=== PATIENT | female | born 1950 | race Caucasian/White ===

== ENCOUNTER 2016-11-11 15:28 | Emergency (ER) | payer MEDICARE, OTHER ==
--- NOTE | 2016-11-11 16:48 | EDM.PDOC ---
ED HPI GENERAL MEDICAL PROBLEM - General Chief Complaint: Gastrointestinal Problem Stated Complaint: CANCER, CONSTIPATED Time Seen by Provider: 11/11/16 16:26 Source of Information: Reports: Patient History Limitations: Reports: No Limitations - History of Present Illness INITIAL COMMENTS - FREE TEXT/NARRATIVE: History of present illness: [66-year-old female with brain cancer being treated by male presents concerned about constipation. She states she's not had a good bowel movement for 4-5 days. She is reluctant to use any [id number] medications for constipation history is afraid they might interfere with her chemotherapy meds etc. She's had no diarrhea and no nausea no vomiting denies any dysuria she's had no fevers or chills.] Review of systems: As per history of present illness and below otherwise all systems reviewed and negative. Past medical history: As per history of present illness and as reviewed below otherwise noncontributory. Surgical history: As per history of present illness and as reviewed below otherwise noncontributory. Social history: No reported history of drug or alcohol abuse. Family history: As per history of present illness and as reviewed below otherwise noncontributory. Physical exam: Gen.: Pleasant lady has alopecia wearing a scarf cap. HEENT: Atraumatic, normocephalic, Lungs: Clear to auscultation Heart: S1S2, regular Abdomen: Soft, nondistended, nontender. Genitourinary: Deferred. Rectal: On rectal examination her vault is empty. Extremities: Atraumatic, negative for cords or calf pain. Neurovascular unremarkable. Neuro: Awake, alert, oriented.Exam nonfocal. Diagnostics: [] Therapeutics: [] Impression: [Constipation by history] Plan: [I discussed home remedies and that the [id number] remedies for constipation should not be a problem for her in using them with her chemotherapy medications.] Definitive disposition and diagnosis as appropriate pending reevaluation and review of above. denies Pain Score (Numeric/FACES): 0 - Related Data Allergies Allergy/AdvReac Type Severity Reaction Status Date / Time clarithromycin [From Biaxin] Allergy Hives Verified 07/04/15 04:21 glycerin [From Tucks] Allergy Hives Verified 07/04/15 04:21 metronidazole Allergy Hives Verified 07/04/15 04:21 mineral oil [From Tucks] Allergy Hives Verified 07/04/15 04:21 moxifloxacin HCl Allergy Cannot Verified 07/04/15 04:21 [From Avelox] Remember pramoxine HCl [From Banners] Allergy Hives Verified 07/04/15 04:21 starch [From cks] Allergy Hives Verified 07/04/15 04:21 tetracycline [Tetracycline] Allergy Hives Verified 07/04/15 04:21 witch parris [From [facility]] Allergy Hives Verified 07/04/15 04:21 witch parris leaf [From Banners] Allergy Hives Verified 07/04/15 04:21 zinc oxide [From Banners] Allergy Hives Verified 07/04/15 04:21 Iodinated Contrast- Oral and AdvReac Stomach Verified 07/04/15 04:21 IV Dye Upset meperidine HCl [From Demerol] AdvReac Nausea and Verified 07/04/15 04:21 Vomiting Home Meds: Home Meds Omeprazole [Prilosec] 20 mg PO BEDTIME 09/26/13 [History] Denosumab [Xgeva] 120 mg INJECT Q90D 06/29/14 [History] Prochlorperazine Maleate [Compazine] 10 mg PO Q6HR PRN 06/29/14 [History] Acetaminophen [Tylenol Extra Strength] 1 - 2 tab PO Q6H PRN 07/04/15 [History] Memantine [Namenda] 10 mg PO BID 11/11/16 [History] Ondansetron [Zofran] 8 mg PO Q8H PRN 11/11/16 [History] Osimertinib Mesylate [Tagrisso] 1 tab PO DAILY 11/11/16 [History] Past Medical History HEENT History: Reports: Impaired Vision Gastrointestinal History: Reports: GERD [employer]IDENT History: Reports: , 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 Musculoskeletal History: Reports: Neck Pain, Chronic Hematologic History: Reports: Blood Transfusion(s) Immunologic History: Reports: Immunosuppression Oncologic (Cancer) History: Reports: Brain, Lung Other Oncologic History: Lung up trachea and spot on the spine - Past Surgical History Respiratory Surgical History: Reports: Lung Biopsies GI Surgical History: Reports: Other (See Below) Other GI Surgeries/Procedures: endosinche of stomache. Female Surgical History: Reports: Hysterectomy, Other (See Below) Other Female Surgeries/Procedures: bladder repair Social & Family History - Tobacco Use Smoking Status *Q: Former Smoker Years of Tobacco use: 24 Packs/Tins Daily: 0.5 Used Tobacco, but Quit: Yes Month Tobacco Last Used: September Second Hand Smoke Exposure: No - Caffeine Use Caffeine Use: Reports: Soda, Tea - Alcohol Use Days Per Week of Alcohol Use: 0 - Recreational Drug Use Recreational Drug Use: No ED ROS GENERAL - Review of Systems Review Of Systems: ROS reveals no pertinent complaints other than HPI. ED EXAM, GI/ABD - Physical Exam Exam: See Below Course - Vital Signs Last Recorded V/S: Last Vital Signs Temp 36.8 C 11/11/16 16:03 Pulse 70 11/11/16 16:03 Resp 16 11/11/16 16:03 BP 148/80 H 11/11/16 16:03 Pulse Ox 95 11/11/16 16:03 Departure - Departure Time of Disposition: 16:47 Disposition: Home, Self-Care 01 Condition: Good Clinical Impression: Constipation Qualifiers: Constipation type: unspecified constipation type Qualified Code(s): K59.00 - Constipation, unspecified - Discharge Information Forms: ED Department Discharge Additional Instructions: As we discussed you can use [id number] remedies for your constipation and not worried that they will interact with your medications that you're currently taking. Again remember our discussion regarding water and drinking water.
[2016-11-11 17:07] VITALS: BP 106/69
== END 2016-11-11 17:24 | disposition home or self-care (01) ==
LOC: JP.ED 15:28
DX: K59.00 Constipation, unspecified (principal); K21.9 Gastro-esophageal reflux disease without esophagitis; C71.9 Malignant neoplasm of brain, unspecified; Z85.118 Personal history of other malignant neoplasm of bronchus and lung; Z79.899 Other long term (current) drug therapy; Z87.891 Personal history of nicotine dependence; Z88.1 Allergy status to other antibiotic agents; Z88.8 Allergy status to other drugs, medicaments and biological substances; Z91.041 Radiographic dye allergy status
CPT/HCPCS: 99283

== ENCOUNTER 2016-12-08 12:15 | Inpatient (IN) | payer MEDICARE, OTHER ==
--- NOTE | 2016-12-08 14:31 | EDM.PDOC ---
ED HPI GENERAL MEDICAL PROBLEM - General Chief Complaint: General Stated Complaint: NAUSEA/VOMITING Time Seen by Provider: 12/08/16 12:26 Source of Information: Reports: Patient, Family () History Limitations: Reports: No Limitations - History of Present Illness INITIAL COMMENTS - FREE TEXT/NARRATIVE: Pt with stage 4 lung CA with mets to brain noted in 10/07. Was given RX for Prednisone 2 weeks ago but did not start it. Appetite progressively declining. With constipation ongoing. Last night took a laxative and struggled to have results. When she finally had results, noted gel like bloody stool. This morning with nausea and vomiting and more frequent gel like stools. Is quite weak. Also with tingling sensation in the brain. Denies headaches or seizures. Has noted increasing right arm weakness. Declines po nausea meds at time of eval. Onset: Gradual Onset Date: 12/08/16 Duration: Getting Worse Severity: Moderate Improves with: Reports: None Worsens with: Reports: Eating, Medication Context: Reports: Other Associated Symptoms: Reports: Loss of Appetite, Malaise, Nausea/Vomiting - Related Data Allergies Allergy/AdvReac Type Severity Reaction Status Date / Time clarithromycin [From Biaxin] Allergy Hives Verified 12/08/16 13:32 glycerin [From Tucks] Allergy Hives Verified 12/08/16 13:32 metronidazole Allergy Hives Verified 12/08/16 13:32 mineral oil [From Tucks] Allergy Hives Verified 12/08/16 13:32 moxifloxacin HCl Allergy Cannot Verified 12/08/16 13:32 [From Avelox] Remember pramoxine HCl [From Tucks] Allergy Hives Verified 12/08/16 13:32 starch [From Tucks] Allergy Hives Verified 12/08/16 13:32 tetracycline [Tetracycline] Allergy Hives Verified 12/08/16 13:32 witch parris [From Tucks] Allergy Hives Verified 12/08/16 13:32 witch parris leaf [From Tucks] Allergy Hives Verified 12/08/16 13:32 zinc oxide [From Tucks] Allergy Hives Verified 12/08/16 13:32 Iodinated Contrast- Oral and AdvReac Stomach Verified 12/08/16 13:32 IV Dye Upset meperidine HCl [From Demerol] AdvReac Nausea and Verified 12/08/16 13:32 Vomiting Home Meds: Home Meds Omeprazole [Prilosec] 20 mg PO BEDTIME 09/26/13 [History] Denosumab [Xgeva] 120 mg INJECT Q90D 06/29/14 [History] Prochlorperazine Maleate [Compazine] 10 mg PO Q6HR PRN 06/29/14 [History] Acetaminophen [Tylenol Extra Strength] 1 - 2 tab PO Q6H PRN 07/04/15 [History] Memantine [Namenda] 10 mg PO BID 11/11/16 [History] Ondansetron [Zofran] 8 mg PO Q8H PRN 11/11/16 [History] Osimertinib Mesylate [Tagrisso] 1 tab PO DAILY 11/11/16 [History] Past Medical History HEENT History: Reports: Impaired Vision Gastrointestinal History: Reports: GERD 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 Female Surgical History: Reports: Hysterectomy, Other (See Below) Other Female Surgeries/Procedures: bladder repair Other Musculoskeletal Surgeries/Procedures:: METS TO SPINE Social & Family History - Tobacco Use Smoking Status *Q: Unknown Ever Smoked Years of Tobacco use: 24 Packs/Tins Daily: 0.5 Used Tobacco, but Quit: Yes Month Tobacco Last Used: September Second Hand Smoke Exposure: No - Caffeine Use Caffeine Use: Reports: Soda, Tea - Alcohol Use Days Per Week of Alcohol Use: 0 - Recreational Drug Use Recreational Drug Use: No ED ROS GENERAL - Review of Systems Review Of Systems: See Below Constitutional: Reports: Malaise, Weakness, Fatigue, Decreased Appetite, Weight Loss HEENT: Reports: No Symptoms Respiratory: Reports: No Symptoms Cardiovascular: Reports: No Symptoms GI/Abdominal: Reports: Bloody Stool, Constipation, Diarrhea, Decreased Appetite : Reports: No Symptoms Musculoskeletal: Reports: Other (right arm weakness) ED EXAM, GENERAL - Physical Exam Exam: See Below Exam Limited By: No Limitations General Appearance: Alert, WD/WN, No Apparent Distress, Thin Ears: Normal External Exam, Normal Canal, Hearing Grossly Normal, Normal TMs Nose: Normal Inspection, Normal Mucosa, No Blood Throat/Mouth: Normal Inspection, Normal Lips, Normal Teeth, Normal Gums, Normal Oropharynx, Normal Voice, No Airway Compromise Head: Atraumatic, Normocephalic Neck: Normal Inspection, Supple, Non-Tender, Full Range of Motion Respiratory/Chest: No Respiratory Distress, Lungs Clear, Normal Breath Sounds, No Accessory Muscle Use, Chest Non-Tender Cardiovascular: Normal Peripheral Pulses, Regular Rate, Rhythm, No Edema, No Gallop, No JVD, No Murmur, No Rub Extremities: Normal Inspection, Normal Range of Motion, Non-Tender, Normal Capillary Refill, No Pedal Edema Neurological: Alert, Oriented, CN II-XII Intact, Normal Cognition, Normal Gait, Normal Reflexes, No Motor/Sensory Deficits Psychiatric: Flat Affect Skin Exam: Warm, Dry, Intact, Normal Color, No Rash Course - Vital Signs Last Recorded V/S: Last Vital Signs Temp 98.4 F 12/08/16 13:33 Pulse 78 12/08/16 13:33 Resp 18 12/08/16 13:33 BP 132/70 12/08/16 13:33 Pulse Ox 96 12/08/16 13:33 - Orders/Labs/Meds Orders: Active Orders 24 hr Category Date Time Status Peripheral IV Care [RC] . DIRECTED Care 12/08/16 16:01 Active Sodium Chloride 0.9% [Normal Saline] 1,000 ml Med 12/08/16 16:15 Ordered IV ASDIRECTED Sodium Chloride 0.9% [Saline Flush] Med 12/08/16 16:01 Ordered 10 ml FLUSH ASDIRECTED PRN Peripheral IV Insertion Adult [OM.PC] Routine Oth 12/08/16 16:01 Ordered Medication Orders Sodium Chloride (Normal Saline) 1,000 mls @ 125 mls/hr IV ASDIRECTED CASSIE Sodium Chloride (Saline Flush) 10 ml FLUSH ASDIRECTED PRN PRN Reason: Keep Vein Open Labs: Laboratory Tests 12/08/16 12/08/16 12/08/16 Range/Units 13:19 13:19 13:33 WBC 12.8 H (4.5-11.0) K/uL RBC 4.45 (3.30-5.50) M/uL Hgb 13.5 (12.0-15.0) g/dL Hct 40.9 (36.0-48.0) % MCV 92 (80-98) fL MCH 30 (27-31) pg MCHC 33 (32-36) % Plt Count 185 (150-400) K/uL Neut % (Auto) 89 H (36-66) % Lymph % (Auto) 4 L (24-44) % [place] % (Auto) 6 (2-6) % Eos % (Auto) 0 L (2-4) % Baso % (Auto) 0 (0-1) % Sodium 135 L (140-148) mmol/L Potassium 4.3 (3.6-5.2) mmol/L Chloride 100 (100-108) mmol/L Carbon Dioxide 20 L (21-32) mmol/L Anion Gap 19.3 H (5.0-14.0) mmol/L BUN 13 (7-18) mg/dL Creatinine 1.1 H (0.6-1.0) mg/dL Est Cr Clr Drug Dosing 43.81 mL/min Estimated GFR (MDRD) 50 L (>60) Glucose 102 (74-106) mg/dL Calcium 8.6 (8.5-10.1) mg/dL Total Bilirubin 0.5 (0.2-1.0) mg/dL AST 14 L (15-37) U/L ALT 15 (12-78) U/L Alkaline Phosphatase 35 L (46-116) U/L Total Protein 7.3 (6.4-8.2) g/dL Albumin 3.6 (3.4-5.0) g/dL Globulin 3.7 H (2.3-3.5) g/dL Albumin/Globulin Ratio 1.0 L (1.2-2.2) Urine Color Yellow Urine Appearance Slightly cloudy Urine pH 5.0 (4.5-8.0) Ur Specific [place] 1.025 (1.008-1.030) Urine Protein Negative (NEGATIVE) mg/dL Urine Glucose (UA) Normal (NEGATIVE) mg/dL Urine Ketones 150 H (NEGATIVE) mg/dL Urine Occult Blood Negative (NEGATIVE) Urine Nitrite Negative (NEGATIVE) Urine Bilirubin Small (NEGATIVE) Urine Urobilinogen 1 (NORMAL) mg/dL Ur Leukocyte Esterase Negative (NEGATIVE) Urine RBC 0-5 (0-5) Urine WBC 0-5 (0-5) Ur Epithelial Cells Rare Amorphous Sediment Few Urine Bacteria Rare Urine Mucus Many Urine Other See note Meds: Medications Generic Name Dose Route Start Last Admin Trade Name Freq PRN Reason Stop Dose Admin Sodium Chloride 1,000 mls @ 125 mls/hr 12/08/16 16:15 Normal Saline IV ASDIRECTED CASSIE Sodium Chloride 10 ml 12/08/16 16:01 Saline Flush FLUSH ASDIRECTED PRN Keep Vein Open Discontinued Medications Generic Name Dose Route Start Last Admin Trade Name Freq PRN Reason Stop Dose Admin Ondansetron HCl 4 mg 12/08/16 15:09 12/08/16 15:22 Zofran Odt PO 12/08/16 15:10 4 mg ONETIME ONE Administration Departure - Departure Time of Disposition: 16:02 Disposition: DC/Tfer to Acute Hospital 02 Condition: Fair Clinical Impression: Rectal bleeding Stage 4 lung cancer Qualifiers: Laterality: unspecified laterality Qualified Code(s): C34.90 - Malignant neoplasm of unspecified part of unspecified bronchus or lung - Discharge Information Referrals: Marissa Phan PA [Primary Care Provider] - Forms: ED Department Discharge Additional Instructions: Labs stable. Hemocult positive. Reviewed options with pt and spouse. Would like to be admitted for hydration. Hospitalist Dr Tiwari comes to discuss Hospice and other options. Pt not sure she is ready to stop treatment at this time. Zofran 4mg po given in ER. Pt and spouse agreeable with plan for admission. - Problem List & Annotations (1) Rectal bleeding SNOMED Code(s): 74351083 Code(s): K62.5 - HEMORRHAGE OF ANUS AND RECTUM Status: Acute Priority: Medium Current Visit: Yes (2) Stage 4 lung cancer SNOMED Code(s): 80295818, 97172285 Code(s): C34.90 - MALIGNANT NEOPLASM OF UNSP PART OF UNSP BRONCHUS OR LUNG Status: Acute Priority: Medium Current Visit: Yes Qualifiers: Laterality: unspecified laterality Qualified Code(s): C34.90 - Malignant neoplasm of unspecified part of unspecified bronchus or lung
[2016-12-08] MEDS ORDERED: Ondansetron 4 MG Tab.DIS PO ONE (15:09)
[2016-12-08] MEDS ORDERED: Sodium Chloride 0.9% 10 ML Syringe FLUSH PRN (16:01)
--- NOTE | 2016-12-08 16:10 | PCM.HP ---
H&P History of Present Illness - General Date of Service: 12/08/16 Admit Problem/Dx: Admission Diagnosis/Problem Admission Diagnosis/Problem Acute kidney injury Source of Information: Patient, Family, Provider History Limitations: Reports: No Limitations - History of Present Illness Initial Comments - Free Text/Narative: Eliza presented to the emergency room today with nausea, vomiting, weakness and hematochezia. She reports that her appetite has been decreased for approximately the last month but has been much worse the past few days. She has had very little to eat or drink. She has become progressively weak. She sleeps much of the day. She has had difficulty with nausea for at least the last month but today developed vomiting. Later in the morning she had some fecal urgency and after an initial hard stool had several smaller stools that had a reddish, jellylike appearance with blood and stool mixed in. She does not report any abdominal pain at this time. She has not noticed any fevers. Urine output has been less than usual but she figured this was because she has not been drinking much. She does not feel short of breath. She reports food tastes too sweet or salty or does not taste like anything at all. Food does not sound good to her at all. We had a long discussion about the current situation and the status of her cancer. She does not want aggressive interventions at this time. She is interested in a trial of hydration and seeing if we can improve her quality of life by decreasing her nausea little bit. - Related Data Allergies/Adverse Reactions: Allergies Allergy/AdvReac Type Severity Reaction Status Date / Time clarithromycin [From Biaxin] Allergy Hives Verified 12/08/16 13:32 glycerin [From Tucks] Allergy Hives Verified 12/08/16 13:32 metronidazole Allergy Hives Verified 12/08/16 13:32 mineral oil [From Tucks] Allergy Hives Verified 12/08/16 13:32 moxifloxacin HCl Allergy Cannot Verified 12/08/16 13:32 [From Avelox] Remember pramoxine HCl [From Tucks] Allergy Hives Verified 12/08/16 13:32 starch [From Tucks] Allergy Hives Verified 12/08/16 13:32 tetracycline [Tetracycline] Allergy Hives Verified 12/08/16 13:32 witch parris [From Tucks] Allergy Hives Verified 12/08/16 13:32 witch parris leaf [From Tucks] Allergy Hives Verified 12/08/16 13:32 zinc oxide [From Tucks] Allergy Hives Verified 12/08/16 13:32 Iodinated Contrast- Oral and AdvReac Stomach Verified 12/08/16 13:32 IV Dye Upset meperidine HCl [From Demerol] AdvReac Nausea and Verified 12/08/16 13:32 Vomiting Home Medications: Home Meds Omeprazole [Prilosec] 20 mg PO BEDTIME 09/26/13 [History] Denosumab [Xgeva] 120 mg INJECT Q90D 06/29/14 [History] Prochlorperazine Maleate [Compazine] 10 mg PO Q6HR PRN 06/29/14 [History] Acetaminophen [Tylenol Extra Strength] 1 - 2 tab PO Q6H PRN 07/04/15 [History] Memantine [Namenda] 10 mg PO BID 11/11/16 [History] Ondansetron [Zofran] 8 mg PO Q8H PRN 11/11/16 [History] Osimertinib Mesylate [Tagrisso] 1 tab PO DAILY 11/11/16 [History] Past Medical History HEENT History: Reports: Impaired Vision Gastrointestinal History: Reports: GERD [employer] History: Reports: , 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 Musculoskeletal History: Reports: Neck Pain, Chronic Hematologic History: Reports: Blood Transfusion(s) Immunologic History: Reports: Immunosuppression Oncologic (Cancer) History: Reports: Brain, Lung Other Oncologic History: Lung up trachea and spot on the spine - Past Surgical History Other HEENT Surgeries/Procedures: METS TO THE BRAIN Respiratory Surgical History: Reports: Lung Biopsies Other Respiratory Surgeries/Procedures: LUNG CA GI Surgical History: Reports: Other (See Below) Other GI Surgeries/Procedures: endosinche of stomache. Female Surgical History: Reports: Hysterectomy, Other (See Below) Other Female Surgeries/Procedures: bladder repair Other Musculoskeletal Surgeries/Procedures:: METS TO SPINE Social & Family History - Family History Family Medical History: Unobtainable Oncologic: Reports: Other (See Below) (Mom had metastatic cancer) - Tobacco Use Smoking Status *Q: Unknown Ever Smoked Years of Tobacco use: 24 Packs/Tins Daily: 0.5 Used Tobacco, but Quit: Yes Month Tobacco Last Used: September Second Hand Smoke Exposure: No - Caffeine Use Caffeine Use: Reports: Soda, Tea - Alcohol Use Days Per Week of Alcohol Use: 0 - Recreational Drug Use Recreational Drug Use: No H&P Review of Systems - Review of Systems: Review Of Systems: See Below Free Text/Narrative: A complete 12 point review of systems was obtained. Pertinent positives and negatives are noted in the history of present illness. All other systems were reviewed and were negative except as noted. Exam - Exam Exam: See Below - Vital Signs Vital Signs: Last Vital Signs Temp 36.9 C 12/08/16 13:33 Pulse 78 12/08/16 13:33 Resp 18 12/08/16 13:33 BP 132/70 12/08/16 13:33 Pulse Ox 96 12/08/16 13:33 Weight: 54.431 kg - Exam Quality Assessment: Supplemental Oxygen General: Alert, Oriented, Cooperative, Mild Distress, Other (looks tired and chronically ill) HEENT: Conjunctiva Clear. No: Mucosa Moist & Wall (dry), Scleral Icterus Neck: Supple, Trachea Midline. No: Lymphadenopathy Lungs: Normal Respiratory Effort. No: Wheezing Cardiovascular: Regular Rate, Regular Rhythm GI/Abdominal Exam: Soft, No Distention Extremities: No Pedal Edema. No: Increased Warmth Skin: Warm, Dry Neuro Extensive - Mental Status: Alert, Oriented x3, Memory Intact, Nl Response to Commands Neuro Extensive - Motor, Sensory, Reflexes: No: Dysarthria, Abnormal Motor, Tremor Psychiatric: Alert, Normal Affect - Patient Data Lab Results Last 24 hrs: Laboratory Results - last 24 hr 12/08/16 12/08/16 12/08/16 Range/Units 13:19 13:19 13:33 WBC 12.8 H (4.5-11.0) K/uL RBC 4.45 (3.30-5.50) M/uL Hgb 13.5 (12.0-15.0) g/dL Hct 40.9 (36.0-48.0) % MCV 92 (80-98) fL MCH 30 (27-31) pg MCHC 33 (32-36) % Plt Count 185 (150-400) K/uL Neut % (Auto) 89 H (36-66) % Lymph % (Auto) 4 L (24-44) % [place] % (Auto) 6 (2-6) % Eos % (Auto) 0 L (2-4) % Baso % (Auto) 0 (0-1) % Sodium 135 L (140-148) mmol/L Potassium 4.3 (3.6-5.2) mmol/L Chloride 100 (100-108) mmol/L Carbon Dioxide 20 L (21-32) mmol/L Anion Gap 19.3 H (5.0-14.0) mmol/L BUN 13 (7-18) mg/dL Creatinine 1.1 H (0.6-1.0) mg/dL Est Cr Clr Drug Dosing 43.81 mL/min Estimated GFR (MDRD) 50 L (>60) Glucose 102 (74-106) mg/dL Calcium 8.6 (8.5-10.1) mg/dL Total Bilirubin 0.5 (0.2-1.0) mg/dL AST 14 L (15-37) U/L ALT 15 (12-78) U/L Alkaline Phosphatase 35 L (46-116) U/L Total Protein 7.3 (6.4-8.2) g/dL Albumin 3.6 (3.4-5.0) g/dL Globulin 3.7 H (2.3-3.5) g/dL Albumin/Globulin Ratio 1.0 L (1.2-2.2) Urine Color Yellow Urine Appearance Slightly cloudy Urine pH 5.0 (4.5-8.0) Ur Specific [place] 1.025 (1.008-1.030) Urine Protein Negative (NEGATIVE) mg/dL Urine Glucose (UA) Normal (NEGATIVE) mg/dL Urine Ketones 150 H (NEGATIVE) mg/dL Urine Occult Blood Negative (NEGATIVE) Urine Nitrite Negative (NEGATIVE) Urine Bilirubin Small (NEGATIVE) Urine Urobilinogen 1 (NORMAL) mg/dL Ur Leukocyte Esterase Negative (NEGATIVE) Urine RBC 0-5 (0-5) Urine WBC 0-5 (0-5) Ur Epithelial Cells Rare Amorphous Sediment Few Urine Bacteria Rare Urine Mucus Many Urine Other See note Result Diagrams: 12/08/16 13:19 12/08/16 13:19 Nirav Results Last 24 hrs: Microbiology 12/08/16 13:33 Stool Occult Blood (NIRAV) - Final Stool / Feces *Q Meaningful Use (ADM) - VTE *Q VTE Criteria *Q: - VTE Risk Assess *Q Each Risk Factor Represents 1 Point: Abnormal Pulmonary Function (COPD) Total Score 1 Point Risk Factors: 1 Each Risk Factor Represents 2 Points: Age 60 - 74 Years Total Score 2 Point Risk Factors: 2 Each Risk Factor Represents 3 Points: Present Cancer or Chemotherapy Total Score 3 Point Risk Factors: 3 Each Risk Factor Represents 5 Points: None Total Score 5 Point Risk Factors: 0 Venous Thromboembolism Risk Factor Score *Q: 6 - Stroke *Q Stroke Criteria *Q: - AMI *Q AMI Criteria *Q: - Problem List (1) Hematochezia SNOMED Code(s): 587099876 ICD Code: K92.1 - MELENA Status: Acute Current Visit: Yes (2) Acute kidney injury SNOMED Code(s): 82023413 ICD Code: N17.9 - ACUTE KIDNEY FAILURE, UNSPECIFIED Status: Acute Current Visit: Yes (3) Dehydration SNOMED Code(s): 88931712 ICD Code: E86.0 - DEHYDRATION Status: Acute Current Visit: Yes (4) Stage 4 lung cancer SNOMED Code(s): 93000658, 42319757 ICD Code: C34.90 - MALIGNANT NEOPLASM OF UNSP PART OF UNSP BRONCHUS OR LUNG Status: Chronic Priority: Medium Current Visit: Yes Qualifiers: Laterality: right Qualified Code(s): C34.91 - Malignant neoplasm of unspecified part of right bronchus or lung (5) Palliative care encounter SNOMED Code(s): 868296190 ICD Code: Z51.5 - ENCOUNTER FOR PALLIATIVE CARE Status: Acute Current Visit: Yes Problem List Initiated/Reviewed/Updated: Yes Orders Last 24hrs: Active Orders 24 hr Category Date Time Status Patient Status Manage Transfer [TRANSFER] Routine ADT 12/08/16 16:02 Ordered Peripheral IV Care [RC] . DIRECTED Care 12/08/16 16:01 Active Sodium Chloride 0.9% [Normal Saline] 1,000 ml Med 12/08/16 16:15 Active IV ASDIRECTED Sodium Chloride 0.9% [Saline Flush] Med 12/08/16 16:01 Active 10 ml FLUSH ASDIRECTED PRN Peripheral IV Insertion Adult [OM.PC] Routine Oth 12/08/16 16:01 Ordered Resuscitation Status Routine Resus Stat 12/08/16 16:03 Ordered Medication Orders Sodium Chloride (Normal Saline) 1,000 mls @ 125 mls/hr IV ASDIRECTED CASSIE Sodium Chloride (Saline Flush) 10 ml FLUSH ASDIRECTED PRN PRN Reason: Keep Vein Open Assessment/Plan Comment:: Assessment and plan - Hematochezia - recent constipation and I suspect she has a bleeding diverticulum. I don't believe that she would be able to tolerate a colonoscopy prep at this time and she does not have any interest in aggressive workup at this point. We did discuss colonoscopy and/or CT scan at this point she does not want to have further workup. She is interested in hydration and monitoring to ensure that she does not have a larger hemorrhage. -IV fluids -Monitor for additional bleeding -Hemoglobin in the morning Chronic nausea, anorexia, dehydration and acute kidney injury - unclear if this is related to poor intake caused by her metastatic cancer, her previous brain radiation, cancer medication or possibly gastritis/gastric ulcer. May be a combination of all of these things. She is not interested in additional workup at this point but is interested in medication trials to see if we can make her more comfortable. She is interested in hydration as well. -IV fluids -Trial of anti-nausea medications in addition to her home ondansetron -Twice daily proton pump inhibitor -Repeat labs in the morning Stage IV lung cancer - she had been receiving palliative chemotherapy but has had progression in symptoms including nausea, anorexia and has lost more than 20 pounds in just over 2 months. At this point she thinks quality of life is more important than quantity. She is nearing the point that she would consider discontinuing her chemotherapy because of all the possible side effects and decrease in her quality of life related to the medications. She is interested in some hydration and medication adjustments to see if we can make her more comfortable. She is contemplating hospice consultation. -IV fluids as above -Aggressive symptom management -Trial of dexamethasone Encounter for palliative care - patient has incurable metastatic lung cancer. She is interested in symptom management and attempts to improve her quality of life but does not want further invasive aggressive interventions or workup. Maintenance issues - - DVT prophylaxis - SCDs - GI prophylaxis - twice daily proton pump inhibitor - Nutrition - full liquids - Gilliam catheter - not indicated CODE STATUS - DO NOT RESUSCITATE and DO NOT INTUBATE Admission justification - This patient will be admitted for inpatient services and is medically appropriate meeting medical necessity for inpatient admission as outlined in my documentation. I reasonably expect the patient will require inpatient services that span a period time over 2 midnights. I reasonably expect this patient to be discharged or transferred within 96 hours after admission to the [facility]. Disposition - anticipate discharge to home with her Primary care physician - Marissa Tiwari M.D.
[2016-12-08] MEDS ORDERED: LORazepam 0.5 MG Tab PO PRN (16:34)
[2016-12-08] MEDS ORDERED: Ondansetron 4 MG Tab.DIS PO PRN (16:34)
[2016-12-08] MEDS ORDERED: Ondansetron 4 MG/2 ML SDV IV PRN (16:34)
[2016-12-08] MEDS ORDERED: Prochlorperazine 10 MG Tab PO PRN (16:34)
[2016-12-08] MEDS ORDERED: Polyethylene Glycol 3350 Powder 17 GM Packet PO PRN (16:34)
[2016-12-08] MEDS ORDERED: Acetaminophen 325 MG Tab PO PRN (16:34)
[2016-12-08] MEDS ORDERED: Lidocaine 2% 30 ML, Alum Hydrox/Mag Hydrox/Simeth 30 ML, diphenhydrAMINE 75 MG PO PRN ×3 (16:34)
[2016-12-08] MEDS: Sodium Chloride 0.9% 1,000 ML IV SCH (16:48)
[2016-12-08] MEDS: Pantoprazole 40 MG Tab.CR PO SCH (17:28)
[2016-12-08] MEDS: Dexamethasone 4 MG Tab PO SCH (17:28)
[2016-12-09] MEDS: Sodium Chloride 0.9% 1,000 ML IV SCH ×3 (01:07→19:35)
[2016-12-09] MEDS: Pantoprazole 40 MG Tab.CR PO SCH ×2 (08:13→16:45)
[2016-12-09] MEDS: Dexamethasone 4 MG Tab PO SCH ×2 (08:14→16:45)
--- NOTE | 2016-12-09 12:29 | PCM.PN ---
- General Info Date of Service: 12/09/16 Functional Status: Reports: Pain Controlled - Review of Systems General: Reports: Weakness Gastrointestinal: Reports: Nausea Systems Review Comment:: No acute events overnight. Still having waxing and waning nausea but no vomiting. No issues with pain. Feels a little bit stronger after hydration. She is not having any fevers. No additional episodes of hematochezia. - Patient Data Vitals - Most Recent: Last Vital Signs Temp 37.1 C 12/09/16 10:41 Pulse 66 12/09/16 10:41 Resp 18 12/09/16 10:41 BP 104/60 12/09/16 10:41 Pulse Ox 97 12/09/16 10:41 Weight - Most Recent: 54.4 kg I&O - Last 24 Hours: Intake & Output 12/08/16 12/09/16 12/09/16 22:59 06:59 14:59 Intake Total 270 1345 100 Output Total 250 Balance 20 1345 100 Lab Results Last 24 Hours: Laboratory Results - last 24 hr 12/09/16 12/09/16 Range/Units 05:59 05:59 WBC 6.8 (4.5-11.0) K/uL RBC 3.80 (3.30-5.50) M/uL Hgb 11.4 L D (12.0-15.0) g/dL Hct 34.9 L (36.0-48.0) % MCV 92 (80-98) fL MCH 30 (27-31) pg MCHC 33 (32-36) % Plt Count 158 (150-400) K/uL Sodium 136 L (140-148) mmol/L Potassium 4.4 (3.6-5.2) mmol/L Chloride 104 (100-108) mmol/L Carbon Dioxide 20 L (21-32) mmol/L Anion Gap 16.4 H (5.0-14.0) mmol/L BUN 9 (7-18) mg/dL Creatinine 0.9 (0.6-1.0) mg/dL Est Cr Clr Drug Dosing 53.52 mL/min Estimated GFR (MDRD) > 60 (>60) Glucose 126 H (74-106) mg/dL Calcium 7.6 L (8.5-10.1) mg/dL Med Orders - Current: Current Medications Acetaminophen (Tylenol) 650 mg PO Q4H PRN PRN Reason: Pain (Mild 1-3)/fever Last Admin: 12/09/16 01:05 Dose: 650 mg Lidocaine HCl 30 ml/ Al Hydroxide/Mg Hydroxide 30 ml/Diphenhydramine HCl 75 mg 0 ml PO Q4H PRN PRN Reason: MOUTH CARE Dexamethasone (Dexamethasone) 4 mg PO BIDMEALS [facility] Last Admin: 12/09/16 08:14 Dose: 4 mg Lorazepam (Ativan) 0.5 mg PO Q4H PRN PRN Reason: Nausea Ondansetron HCl (Zofran Odt) 4 mg PO Q6H PRN PRN Reason: Nausea able to take PO Ondansetron HCl (Zofran) 4 mg IV Q6H PRN PRN Reason: Nausea/Vomiting Pantoprazole Sodium (Protonix) 40 mg PO BIDAC [facility] Last Admin: 12/09/16 08:13 Dose: 40 mg Polyethylene Glycol (Miralax) 17 gm PO DAILY PRN PRN Reason: Constipation Prochlorperazine Maleate (Compazine) 10 mg PO Q6H PRN PRN Reason: Nausea/Vomiting Senna/Docusate Sodium (Senna Plus) 1 tab PO BID PRN PRN Reason: Constipation Sodium Chloride (Saline Flush) 10 ml FLUSH ASDIRECTED PRN PRN Reason: Keep Vein Open Discontinued Medications Sodium Chloride (Normal Saline) 1,000 mls @ 125 mls/hr IV ASDIRECTED [facility] Last Admin: 12/09/16 09:08 Dose: 125 mls/hr Ondansetron HCl (Zofran Odt) 4 mg PO ONETIME ONE Stop: 12/08/16 15:10 Last Admin: 12/08/16 15:22 Dose: 4 mg - Exam Quality Assessment: Supplemental Oxygen General: Alert, Oriented, Cooperative, No Acute Distress Neck: Supple Lungs: Normal Respiratory Effort Cardiovascular: Regular Rate, Regular Rhythm GI/Abdominal Exam: Soft, No Distention Extremities: No Pedal Edema Skin: Warm, Dry Psy/Mental Status: Alert, Normal Affect - Problem List & Annotations (1) Hematochezia SNOMED Code(s): 656186570 Code(s): K92.1 - MELENA Status: Acute Current Visit: Yes (2) Acute kidney injury SNOMED Code(s): 70584770 Code(s): N17.9 - ACUTE KIDNEY FAILURE, UNSPECIFIED Status: Acute Current Visit: Yes (3) Dehydration SNOMED Code(s): 03249328 Code(s): E86.0 - DEHYDRATION Status: Acute Current Visit: Yes (4) Stage 4 lung cancer SNOMED Code(s): 44444813, 47882604 Code(s): C34.90 - MALIGNANT NEOPLASM OF UNSP PART OF UNSP BRONCHUS OR LUNG Status: Chronic Priority: Medium Current Visit: Yes Qualifiers: Laterality: right Qualified Code(s): C34.91 - Malignant neoplasm of unspecified part of right bronchus or lung (5) Palliative care encounter SNOMED Code(s): 617011257 Code(s): Z51.5 - ENCOUNTER FOR PALLIATIVE CARE Status: Acute Current Visit: Yes - Problem List Review Problem List Initiated/Reviewed/Updated: Yes - My Orders Last 24 Hours: My Active Orders 12/08/16 16:03 Resuscitation Status Routine 12/08/16 16:34 Patient Status [ADT] Routine Notify Provider Vital Signs [RC] ASDIRECTED Oxygen Therapy [RC] PRN Up With Assistance [RC] ASDIRECTED VTE/DVT Education [RC] Per Unit Routine Vital Signs [RC] Q4H Acetaminophen [Tylenol] 650 mg PO Q4H PRN Docusate Sodium/Sennosides [Senna Plus] 1 tab PO BID PRN LORazepam [Ativan] 0.5 mg PO Q4H PRN Lidocaine 2% [Xylocaine 2% Viscous] 30 ml Alum Hydrox/Mag Hydrox/Simeth [Mag-Al Plus] 30 ml diphenhydrAMINE [Benadryl] 75 mg 30 ml dose PO Q4H Ondansetron [Zofran ODT] 4 mg PO Q6H PRN Ondansetron [Zofran] 4 mg IV Q6H PRN Pantoprazole [ProTONIX] 40 mg PO BIDAC Polyethylene Glycol 3350 [MiraLAX] 17 gm PO DAILY PRN Prochlorperazine [Compazine] 10 mg PO Q6H PRN 12/08/16 17:00 Dexamethasone 4 mg PO BIDMEALS 12/08/16 17:34 SCD [Sequential Compression Device] [OM.PC] Routine 12/08/16 Dinner Full Liquid Diet [DIET] 12/09/16 04:59 Air Mattress [Pressure Reduction Mattress] [OM.PC] Routine 12/09/16 12:30 Scopolamine [Transderm-Scop] 1.5 mg TRDERM Q72H Sodium Chloride 0.9% [Normal Saline] 1,000 ml IV ASDIRECTED - Plan Plan:: Assessment and plan - Hematochezia - recent constipation and I suspect she has a bleeding diverticulum. No recurrence overnight. -Gentle IV fluids -Monitor for additional bleeding -Hemoglobin in the morning Chronic nausea, anorexia, dehydration and acute kidney injury - maybe a little better since admission. -Trial of scopolamine patch -Chemotherapy is on hold -Gentle IV fluids -Trial of anti-nausea medications in addition to her home ondansetron -Twice daily proton pump inhibitor -Repeat labs in the morning Stage IV lung cancer - she had been receiving palliative chemotherapy but has had progression in symptoms including nausea, anorexia and has lost more than 20 pounds in just over 2 months. At this point she thinks quality of life is more important than quantity. She is nearing the point that she would consider discontinuing her chemotherapy because of all the possible side effects and decrease in her quality of life related to the medications. She is interested in some hydration and medication adjustments to see if we can make her more comfortable. She is interested in hospice informational consultation. -IV fluids as above -Aggressive symptom management -Trial of dexamethasone Encounter for palliative care - patient has incurable metastatic lung cancer. She is interested in symptom management and attempts to improve her quality of life but does not want further invasive aggressive interventions or workup. Maintenance issues - - DVT prophylaxis - SCDs - GI prophylaxis - twice daily proton pump inhibitor - Nutrition - full liquids Disposition - anticipate discharge to home with her , hopefully tomorrow if we can improve symptoms overnight Primary care physician - Marissa Tiwari M.D.
[2016-12-09] MEDS ORDERED: Scopolamine 1.5 MG Transdermal Patch TRDERM SCH (13:00)
[2016-12-10] MEDS: Pantoprazole 40 MG Tab.CR PO SCH ×2 (08:01→16:55)
[2016-12-10] MEDS: Dexamethasone 4 MG Tab PO SCH ×2 (08:02→17:01)
[2016-12-10] MEDS: Sodium Chloride 0.9% 1,000 ML IV SCH (08:07)
--- NOTE | 2016-12-10 10:23 | PCM.PN ---
- General Info Date of Service: 12/10/16 Functional Status: Reports: Pain Controlled, Ambulating - Review of Systems General: Reports: Weakness Gastrointestinal: Reports: Constipation, Nausea Systems Review Comment:: No acute events overnight. She feels a little bit stronger today but continues to have essentially no appetite. Continues to have waxing and waning nausea and this has not improved after the scopolamine patch was started. She thinks that her mouth is more dry today than it has been. She has not been having any fevers. She has not had any diarrhea. - Patient Data Vitals - Most Recent: Last Vital Signs Temp 37.0 C 12/10/16 06:43 Pulse 61 12/10/16 06:43 Resp 20 12/10/16 06:43 BP 116/65 12/10/16 06:43 Pulse Ox 98 12/10/16 06:43 Weight - Most Recent: 54.4 kg I&O - Last 24 Hours: Intake & Output 12/09/16 12/10/16 12/10/16 22:59 06:59 14:59 Intake Total 1446 973 240 Balance 1446 973 240 Med Orders - Current: Current Medications Acetaminophen (Tylenol) 650 mg PO Q4H PRN PRN Reason: Pain (Mild 1-3)/fever Last Admin: 12/09/16 01:05 Dose: 650 mg Lidocaine HCl 30 ml/ Al Hydroxide/Mg Hydroxide 30 ml/Diphenhydramine HCl 75 mg 0 ml PO Q4H PRN PRN Reason: MOUTH CARE Dexamethasone (Dexamethasone) 4 mg PO BIDMEALS [facility] Last Admin: 12/10/16 08:02 Dose: 4 mg Lorazepam (Ativan) 0.5 mg PO Q4H PRN PRN Reason: Nausea Ondansetron HCl (Zofran Odt) 4 mg PO Q6H PRN PRN Reason: Nausea able to take PO Ondansetron HCl (Zofran) 4 mg IV Q6H PRN PRN Reason: Nausea/Vomiting Pantoprazole Sodium (Protonix) 40 mg PO BIDAC [facility] Last Admin: 12/10/16 08:01 Dose: 40 mg Polyethylene Glycol (Miralax) 17 gm PO DAILY PRN PRN Reason: Constipation Prochlorperazine Maleate (Compazine) 10 mg PO Q6H PRN PRN Reason: Nausea/Vomiting Senna/Docusate Sodium (Senna Plus) 1 tab PO BID PRN PRN Reason: Constipation Sodium Chloride (Saline Flush) 10 ml FLUSH ASDIRECTED PRN PRN Reason: Keep Vein Open Discontinued Medications Sodium Chloride (Normal Saline) 1,000 mls @ 125 mls/hr IV ASDIRECTED [facility] Last Admin: 12/09/16 09:08 Dose: 125 mls/hr Sodium Chloride (Normal Saline) 1,000 mls @ 75 mls/hr IV ASDIRECTED [facility] Last Admin: 12/10/16 08:07 Dose: 75 mls/hr Ondansetron HCl (Zofran Odt) 4 mg PO ONETIME ONE Stop: 12/08/16 15:10 Last Admin: 12/08/16 15:22 Dose: 4 mg Scopolamine (Transderm-Scop) 1.5 mg TRDERM Q72H [facility] Last Admin: 12/09/16 13:19 Dose: 1.5 mg - Exam Quality Assessment: No: Supplemental Oxygen General: Alert, Oriented, Cooperative, No Acute Distress Neck: Supple Lungs: Normal Respiratory Effort GI/Abdominal Exam: Soft, No Distention Extremities: No Pedal Edema. No: Increased Warmth Skin: Warm, Dry Psy/Mental Status: Alert, Normal Affect - Problem List & Annotations (1) Hematochezia SNOMED Code(s): 854007674 Code(s): K92.1 - MELENA Status: Acute Current Visit: Yes (2) Acute kidney injury SNOMED Code(s): 66921814 Code(s): N17.9 - ACUTE KIDNEY FAILURE, UNSPECIFIED Status: Acute Current Visit: Yes (3) Dehydration SNOMED Code(s): 08368566 Code(s): E86.0 - DEHYDRATION Status: Acute Current Visit: Yes (4) Stage 4 lung cancer SNOMED Code(s): 44632652, 35180347 Code(s): C34.90 - MALIGNANT NEOPLASM OF UNSP PART OF UNSP BRONCHUS OR LUNG Status: Chronic Priority: Medium Current Visit: Yes Qualifiers: Laterality: right Qualified Code(s): C34.91 - Malignant neoplasm of unspecified part of right bronchus or lung (5) Palliative care encounter SNOMED Code(s): 730328537 Code(s): Z51.5 - ENCOUNTER FOR PALLIATIVE CARE Status: Acute Current Visit: Yes - Problem List Review Problem List Initiated/Reviewed/Updated: Yes - My Orders Last 24 Hours: My Active Orders 12/09/16 12:30 Sodium Chloride 0.9% [Normal Saline] 1,000 ml IV ASDIRECTED 12/09/16 Dinner Regular Diet [DIET] 12/10/16 10:20 Consult to Physician [CONS] Routine 12/10/16 10:21 Notify Provider Consults [RC] ASDIRECTED 12/10/16 10:30 Sodium Chloride 0.9% [Normal Saline] 1,000 ml IV ASDIRECTED 12/11/16 Breakfast NPO After Midnight [Nothing per Oral After Midnight Diet] [DIET] - Plan Plan:: Assessment and plan - Hematochezia - recent constipation and I suspect she has a bleeding diverticulum. No recurrence since admission. -Gentle IV fluids -Scheduled miralax -Monitor for additional bleeding -Hemoglobin in the morning Chronic nausea, anorexia, dehydration and acute kidney injury - kidney function better. No significant change in anorexia or nausea. -Trial of Compazine and/or lorazepam -Chemotherapy is on hold -Gentle IV fluids -Twice daily proton pump inhibitor -EGD with Dr. Renee in the morning to rule out esophageal and/or gastric pathology -Repeat labs in the morning Stage IV lung cancer - she had been receiving palliative chemotherapy but has had progression in symptoms including nausea, anorexia and has lost more than 20 pounds in just over 2 months. At this point she thinks quality of life is more important than quantity. She is nearing the point that she would consider discontinuing her chemotherapy because of all the possible side effects and decrease in her quality of life related to the medications. She is interested in some hydration and medication adjustments to see if we can make her more comfortable. She is interested in hospice informational consultation. -IV fluids as above -Aggressive symptom management -Trial of dexamethasone -Contact hospice for consultation, either in the hospital tomorrow or after she goes home Encounter for palliative care - patient has incurable metastatic lung cancer. She is interested in symptom management and attempts to improve her quality of life but does not want further invasive aggressive interventions or workup. Maintenance issues - - DVT prophylaxis - SCDs - GI prophylaxis - twice daily proton pump inhibitor - Nutrition - regular diet with food choices as tolerated Disposition - anticipate discharge to home with her , hopefully tomorrow if stable overnight Primary care physician - Marissa Tiwari M.D.
[2016-12-10] MEDS ORDERED: Sodium Chloride 0.9% 1,000 ML IV SCH (10:30)
[2016-12-10] MEDS: Polyethylene Glycol 3350 Powder 17 GM Packet PO SCH (11:09)
[2016-12-11] MEDS ORDERED: Propofol 200 MG/20 ML SDV ONE (08:13)
[2016-12-11] MEDS ORDERED: fentaNYL 100 MCG/2 ML SDV ONE (08:13)
[2016-12-11] MEDS ORDERED: Midazolam 1 MG/ML 2 ML SDV ONE (08:14)
[2016-12-11] MEDS: Dexamethasone 4 MG Tab PO SCH ×2 (09:58→12:25)
[2016-12-11] MEDS: Pantoprazole 40 MG Tab.CR PO SCH ×2 (09:58→12:25)
[2016-12-11] MEDS: Polyethylene Glycol 3350 Powder 17 GM Packet PO SCH ×2 (09:59→12:25)
--- NOTE | 2016-12-11 12:15 | PCM.DCSUM1 ---
Discharge Summary - Hospital Course Brief History: Ms. Watts is a 66-year-old woman with known stage IV lung cancer. She was admitted through the emergency department for management of anorexia associated with nausea and vomiting. - Discharge Data Discharge Date: 12/11/16 Discharge Disposition: Home, Self-Care 01 Condition: Poor - Discharge Diagnosis/Problem(s) (1) Stage 4 lung cancer SNOMED Code(s): 37566588, 86281316 ICD Code: C34.90 - MALIGNANT NEOPLASM OF UNSP PART OF UNSP BRONCHUS OR LUNG Status: Chronic Priority: Medium Current Visit: Yes Qualifiers: Laterality: right Qualified Code(s): C34.91 - Malignant neoplasm of unspecified part of right bronchus or lung (2) Dehydration SNOMED Code(s): 10449853 ICD Code: E86.0 - DEHYDRATION Status: Acute Current Visit: Yes (3) Palliative care encounter SNOMED Code(s): 253779006 ICD Code: Z51.5 - ENCOUNTER FOR PALLIATIVE CARE Status: Acute Current Visit: Yes - Patient Summary/Data Consults: Consultations 12/10/16 10:20 Consult to Physician [CONS] Routine Consulting Provider: Apolinra Renee Call Completed to Consulting Physician: Yes Reason for Consult: EGD Person Notified: BDB Date Notified: 12/10/16 Special Instructions: EGD in the morning Hospital Course: Ms. Watts is a 66-year-old woman with a known history of stage IV lung cancer. She is currently in the process of receiving palliative chemotherapy. Over the past several weeks has progressively developed anorexia associated with nausea and vomiting. On initial evaluation was felt to be dehydrated and was admitted for hydration and management of current symptoms. She was given IV fluids for hydration as well as medications needed for management of nausea. She was started on some Methasone 4 mg by mouth twice a day he did note some improvement in her energy level but really did not feel significant improvement in her anorexia. Nausea and vomiting were well managed by the time of discharge but oral intake remained very poor. She was seen and evaluated by Dr. Renee, EGD was performed which showed no specific cause of her underlying symptoms. She wants to continue the palliative chemotherapy at the present time, but would also like to talk to hospice concerning future admission. Activity will be as tolerated and she will resume her usual medications. Lorazepam will be added for use as another means to manage her nausea. We'll continue dexamethasone 4 mg twice daily. - Patient Instructions Diet: Usual Diet as Tolerated Activity: As Tolerated Other/Special Instructions: Please arrange for hospice consult after discharge. - Discharge Plan Prescriptions/Med Rec: Dexamethasone 4 mg PO BIDMEALS #30 tablet LORazepam [Ativan] 0.5 mg PO Q2H PRN #30 tablet PRN Reason: Nausea Home Medications: Home Meds Omeprazole [Prilosec] 20 mg PO BEDTIME 09/26/13 [History] Prochlorperazine Maleate [Compazine] 10 mg PO Q6HR PRN 06/29/14 [History] Ondansetron [Zofran] 8 mg PO Q8H PRN 11/11/16 [History] Osimertinib Mesylate [Tagrisso] 80 mg PO DAILY 12/08/16 [History] Dexamethasone 4 mg PO BIDMEALS #30 tablet 12/11/16 [Rx] LORazepam [Ativan] 0.5 mg PO Q2H PRN #30 tablet 12/11/16 [Rx] Referrals: Marissa Phan PA [Primary Care Provider] - - Patient Data Vitals - Most Recent: Last Vital Signs Temp 97.0 F 12/11/16 10:14 Pulse 59 L 12/11/16 10:14 Resp 15 12/11/16 10:14 BP 111/49 L 12/11/16 10:14 Pulse Ox 99 12/11/16 10:14 Weight - Most Recent: 119 lb 14.903 oz I&O - Last 24 hours: Intake & Output 12/10/16 12/11/16 12/11/16 22:59 06:59 14:59 Intake Total 865 599 100 Balance 865 599 100 Med Orders - Current: Current Medications Acetaminophen (Tylenol) 650 mg PO Q4H PRN PRN Reason: Pain (Mild 1-3)/fever Last Admin: 12/09/16 01:05 Dose: 650 mg Lidocaine HCl 30 ml/ Al Hydroxide/Mg Hydroxide 30 ml/Diphenhydramine HCl 75 mg 0 ml PO Q4H PRN PRN Reason: MOUTH CARE Dexamethasone (Dexamethasone) 4 mg PO BIDMEALS [facility] Last Admin: 12/11/16 09:58 Dose: Not Given Sodium Chloride (Normal Saline) 1,000 mls @ 50 mls/hr IV ASDIRECTED [facility] Last Admin: 12/11/16 00:52 Dose: 50 mls/hr Lorazepam (Ativan) 0.5 mg PO Q4H PRN PRN Reason: Nausea Ondansetron HCl (Zofran Odt) 4 mg PO Q6H PRN PRN Reason: Nausea able to take PO Ondansetron HCl (Zofran) 4 mg IV Q6H PRN PRN Reason: Nausea/Vomiting Pantoprazole Sodium (Protonix) 40 mg PO BIDAC [facility] Last Admin: 12/11/16 09:58 Dose: Not Given Polyethylene Glycol (Miralax) 17 gm PO DAILY PRN PRN Reason: Constipation Polyethylene Glycol (Miralax) 17 gm PO DAILY [facility] Last Admin: 12/11/16 09:59 Dose: Not Given Prochlorperazine Maleate (Compazine) 10 mg PO Q6H PRN PRN Reason: Nausea/Vomiting Last Admin: 12/10/16 11:09 Dose: 10 mg Senna/Docusate Sodium (Senna Plus) 1 tab PO BID PRN PRN Reason: Constipation Sodium Chloride (Saline Flush) 10 ml FLUSH ASDIRECTED PRN PRN Reason: Keep Vein Open Discontinued Medications Fentanyl (Sublimaze) Confirm Administered Dose 100 mcg .ROUTE .STK-MED ONE Stop: 12/11/16 08:14 Sodium Chloride (Normal Saline) 1,000 mls @ 125 mls/hr IV ASDIRECTED [facility] Last Admin: 12/09/16 09:08 Dose: 125 mls/hr Sodium Chloride (Normal Saline) 1,000 mls @ 75 mls/hr IV ASDIRECTED [facility] Last Admin: 12/10/16 08:07 Dose: 75 mls/hr Midazolam HCl (Versed 1 Mg/Ml) Confirm Administered Dose 2 mg .ROUTE .STK-MED ONE Stop: 12/11/16 08:15 Ondansetron HCl (Zofran Odt) 4 mg PO ONETIME ONE Stop: 12/08/16 15:10 Last Admin: 12/08/16 15:22 Dose: 4 mg Propofol (Diprivan 20 Ml) Confirm Administered Dose 200 mg .ROUTE .STK-MED ONE Stop: 12/11/16 08:14 Scopolamine (Transderm-Scop) 1.5 mg TRDERM Q72H [facility] Last Admin: 12/09/16 13:19 Dose: 1.5 mg *Q Meaningful Use (DIS) - VTE *Q VTE Criteria *Q: - Stroke *Q Stroke Criteria *Q: - AMI *Q AMI Criteria *Q:
[2016-12-11 12:44] VITALS: BP 139/72
--- NOTE | 2016-12-11 14:18 | OR ---
DATE OF PROCEDURE: 12/11/2016 PREOPERATIVE DIAGNOSES: Dysphagia, nausea, bad taste of food in mouth. POSTOPERATIVE DIAGNOSES: Dysphagia, nausea, bad taste of food in mouth, hiatal hernia, mild antral gastritis. PROCEDURE: Esophagogastroduodenoscopy with antral biopsies for CLOtest and sent for pathology to look for Helicobacter pylori. SURGEON: Apolinar Renee MD. ANESTHESIA: IV anesthesia with monitored anesthesia care. INDICATIONS: This 66-year-old white female is in the hospital. She has difficulty eating, food tastes bad and she has persistent nausea. She has been started on a proton pump inhibitor. A request was made for upper endoscopy to see if there are any other treatable causes for this problem. She does have stage IV lung cancer with tumor in her brain and bones. I counseled her for upper endoscopy with possible biopsy including risks and alternatives, and she gave her informed consent to proceed. DESCRIPTION OF PROCEDURE: The patient was placed in the left lateral decubitus position. IV anesthesia was administered by the Anesthesia Service. Time-out was held. The flexible video Olympus upper endoscope was passed through her mouth, down her esophagus, and into her stomach. The scope was easily passed through the pylorus into the duodenal reaching its third portion. The scope was then slowly withdrawn, examining the mucosa throughout. The duodenal mucosa appeared unremarkable. The scope was brought up through the pylorus. There was some mild erythema in the antrum consistent with mild antral gastritis. We obtained biopsies of the antrum for CLOtest and sent for pathology to look for Helicobacter pylori. The scope was retroflexed. We did see a small hiatal hernia, no inflammation proximally. The scope was straightened and brought up through the GE junction. The hiatal hernia was about 2 cm long. The GE junction had a straight Z-line, there was possibly some old chronic inflammation here, but no obstructing lesions. The scope was then brought up through the remainder of the esophagus, which appeared unremarkable and it was removed. She tolerated the procedure well. Apolinar Renee MD /[id number] MTDD
== END 2016-12-11 13:30 | disposition home or self-care (01) | DRG 181 ==
LOC: JP.ED 12:15 → JP.MS 16:02
PROVIDERS: ADMIT Internal Medicine; ATTEND Hospitalist
PROC: 0DJ08ZZ Inspection of Upper Intestinal Tract, Via Natural or Artificial Opening Endoscopic (ICD-10-PCS; principal; 2016-12-11)
PROC: 0DB68ZX Excision of Stomach, Via Natural or Artificial Opening Endoscopic, Diagnostic (ICD-10-PCS; 2016-12-11)
DX: K62.5 Hemorrhage of anus and rectum (principal); C34.90 Malignant neoplasm of unspecified part of unspecified bronchus or lung; C34.91 Malignant neoplasm of unspecified part of right bronchus or lung; K21.9 Gastro-esophageal reflux disease without esophagitis; K92.1 Melena; N17.9 Acute kidney failure, unspecified; C79.31 Secondary malignant neoplasm of brain; K29.70 Gastritis, unspecified, without bleeding; K44.9 Diaphragmatic hernia without obstruction or gangrene; E86.0 Dehydration; F50.89 Other specified eating disorder; R11.2 Nausea with vomiting, unspecified; Z51.5 Encounter for palliative care; Z88.8 Allergy status to other drugs, medicaments and biological substances; Z79.899 Other long term (current) drug therapy
CPT/HCPCS: 36415; 80053; 81001; 82272; 85025; 99285; A9270; 80048; 85027; 87081; 88305; J2250; J2704; J3010; J7040; J8540

== ENCOUNTER 2017-03-16 13:32 | Emergency (ER) | payer MEDICARE, OTHER ==
[2017-03-16] MEDS ORDERED: Sodium Chloride 0.9% 1,000 ML IV SCH (14:15)
--- NOTE | 2017-03-16 14:21 | EDM.PDOC ---
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 She's been treated with several courses of antibiotics for a persistent urinary infection. Today she was supposed to come in for some repeat labs and a recheck of some oral thrush, told the clinic that she was not improving so they advised her to just come to the emergency room. She's had no fevers or chills, denies shortness of breath, her main complaint is just profound fatigue and weakness, no appetite and inability to eat or drink anything without becoming nauseous. She still feels like she may have a UTI with some mild urgency and dysuria. Onset: Unknown/Unsure (Symptoms have been ongoing for several weeks) Severity: Moderate Improves with: Reports: None Worsens with: Reports: None Associated Symptoms: Reports: Malaise, Nausea/Vomiting, Weakness. Denies: Chest Pain, Cough, Fever/Chills, Headaches, Shortness of Breath Generalized Pain Score (Numeric/FACES): 1 - Related Data Allergies Allergy/AdvReac Type Severity Reaction Status Date / Time adhesive tape Allergy Redness Verified 03/16/17 13:50 clarithromycin [From Biaxin] Allergy Hives Verified 03/16/17 13:50 glycerin [From Tucks] Allergy Hives Verified 03/16/17 13:50 metronidazole Allergy Hives Verified 03/16/17 13:50 mineral oil [From Tucks] Allergy Hives Verified 03/16/17 13:50 moxifloxacin HCl Allergy Cannot Verified 03/16/17 13:50 [From Avelox] Remember pramoxine HCl [From Tucks] Allergy Hives Verified 03/16/17 13:50 starch [From Tucks] Allergy Hives Verified 03/16/17 13:50 tetracycline [Tetracycline] Allergy Hives Verified 03/16/17 13:50 witch parris [From Tucks] Allergy Hives Verified 03/16/17 13:50 witch parris leaf [From Tucks] Allergy Hives Verified 03/16/17 13:50 zinc oxide [From Tucks] Allergy Hives Verified 03/16/17 13:50 Iodinated Contrast- Oral and AdvReac Stomach Verified 03/16/17 13:50 IV Dye Upset meperidine HCl [From Demerol] AdvReac Nausea and Verified 03/16/17 13:50 Vomiting Home Meds: Home Meds Omeprazole [Prilosec] 20 mg PO BEDTIME 09/26/13 [History] Prochlorperazine Maleate [Compazine] 10 mg PO Q6HR PRN 06/29/14 [History] Ondansetron [Zofran] 8 mg PO Q8H PRN 11/11/16 [History] Osimertinib Mesylate [Tagrisso] 80 mg PO DAILY 12/08/16 [History] Dexamethasone 4 mg PO BIDMEALS #30 tablet 12/11/16 [Rx] LORazepam [Ativan] 0.5 mg PO Q2H PRN #30 tablet 12/11/16 [Rx] Past Medical History HEENT History: Reports: Impaired Vision Gastrointestinal History: Reports: GERD 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 Female Surgical History: Reports: Hysterectomy, Other (See Below) Other Female Surgeries/Procedures: bladder repair Other Musculoskeletal Surgeries/Procedures:: METS TO SPINE Social & Family History - Family History Family Medical History: Noncontributory Oncologic: Reports: Other (See Below) - Tobacco Use Smoking Status *Q: Unknown Ever Smoked Years of Tobacco use: 25 Packs/Tins Daily: 0.5 Used Tobacco, but Quit: Yes Month Tobacco Last Used: 26 years ago Second Hand Smoke Exposure: No - Caffeine Use Caffeine Use: Reports: None - Alcohol Use Days Per Week of Alcohol Use: 0 - Recreational Drug Use Recreational Drug Use: No ED ROS GENERAL - Review of Systems Review Of Systems: See Below Constitutional: Reports: Malaise, Weakness, Decreased Appetite. Denies: Fever, Chills HEENT: Reports: Other (Dry mouth, sore tongue) Respiratory: Denies: Shortness of Breath Cardiovascular: Denies: Chest Pain GI/Abdominal: Reports: Decreased Appetite, Nausea, Vomiting. Denies: Abdominal Pain : Reports: Other (Mild urgency and dysuria intermittently) Skin: Reports: Bruising (Bruises easily) Neurological: Reports: Weakness. Denies: Dizziness, Headache ED EXAM, GENERAL - Physical Exam Exam: See Below Exam Limited By: No Limitations General Appearance: Alert, No Apparent Distress, Other (Appears older than stated age) Eye Exam: Bilateral Eye: EOMI (No jaundice) Throat/Mouth: Other (Oral mucosa appears hydrated. Dentures are present. No significant lesions or coating of the tongue or mucous membranes) Respiratory/Chest: No Respiratory Distress, Lungs Clear Cardiovascular: Regular Rate, Rhythm GI/Abdominal: Soft, Non-Tender Extremities: Other (Very thin extremities, cachectic) Neurological: Alert, Oriented Course - Vital Signs Last Recorded V/S: Last Vital Signs Temp 98.6 F 03/16/17 13:45 Pulse 78 03/16/17 16:36 Resp 14 03/16/17 16:36 BP 131/66 03/16/17 16:36 Pulse Ox 96 03/16/17 16:36 - Orders/Labs/Meds Labs: Laboratory Tests 03/16/17 03/16/17 03/16/17 Range/Units 14:35 14:35 14:54 WBC 8.6 (4.5-11.0) K/uL RBC 4.25 (3.30-5.50) M/uL Hgb 13.0 (12.0-15.0) g/dL Hct 38.4 (36.0-48.0) % MCV 90 (80-98) fL MCH 31 (27-31) pg MCHC 34 (32-36) % Plt Count 158 (150-400) K/uL Neut % (Auto) 92 H (36-66) % Lymph % (Auto) 4 L (24-44) % [place]eadle % (Auto) 4 (2-6) % Eos % (Auto) 0 L (2-4) % Baso % (Auto) 0 (0-1) % Sodium 130 L (140-148) mmol/L Potassium 5.1 (3.6-5.2) mmol/L Chloride 100 (100-108) mmol/L Carbon Dioxide 18 L (21-32) mmol/L Anion Gap 17.1 H (5.0-14.0) mmol/L BUN 46 H D (7-18) mg/dL Creatinine 1.3 H (0.6-1.0) mg/dL Est Cr Clr Drug Dosing 30.89 mL/min Estimated GFR (MDRD) 41 L (>60) Glucose 132 H (74-106) mg/dL Calcium 9.2 D (8.5-10.1) mg/dL Total Bilirubin 0.4 (0.2-1.0) mg/dL AST 16 (15-37) U/L ALT 23 (12-78) U/L Alkaline Phosphatase 38 L (46-116) U/L Troponin I < 0.017 (0.000-0.056) ng/mL Total Protein 6.3 L (6.4-8.2) g/dL Albumin 3.7 (3.4-5.0) g/dL Globulin 2.6 (2.3-3.5) g/dL Albumin/Globulin Ratio 1.4 (1.2-2.2) Urine Color Yellow Urine Appearance Clear Urine pH 5.0 (4.5-8.0) Ur Specific [place] 1.020 (1.008-1.030) Urine Protein Negative (NEGATIVE) mg/dL Urine Glucose (UA) Normal (NEGATIVE) mg/dL Urine Ketones Negative (NEGATIVE) mg/dL Urine Occult Blood Negative (NEGATIVE) Urine Nitrite Negative (NEGATIVE) Urine Bilirubin Negative (NEGATIVE) Urine Urobilinogen Normal (NORMAL) mg/dL Ur Leukocyte Esterase Negative (NEGATIVE) Urine RBC 0-5 (0-5) Urine WBC 0-5 (0-5) Ur Epithelial Cells Rare Amorphous Sediment Few Urine Bacteria Few Urine Mucus Few Meds: Medications Discontinued Medications Generic Name Dose Route Start Last Admin Trade Name Freq PRN Reason Stop Dose Admin Sodium Chloride 1,000 mls @ 500 mls/hr 03/16/17 14:15 03/16/17 15:21 Normal Saline IV 999 mls/hr ASDIRECTED [facility] Infusion - Re-Assessments/Exams Free Text/Narrative Re-Assessment/Exam: 03/16/17 14:20 An IV was placed and the patient was started on normal saline at 500 mL an hour. A catheter UA specimen was obtained for accuracy. CBC, CMP and troponin were obtained. 03/16/17 16:24 Urine was completely clear. BUN and creatinine were elevated indicating dehydration. The patient was bolused with 1 L of normal saline, was allowed to eat a small meal and ambulated with a walker and felt much better. I have no reason for hospitalization at this time but reassured her that her UTI is resolved. She needs to continue taking fluids and trying to eat, if she cannot she needs to return. Departure - Departure Time of Disposition: 16:35 Disposition: Home, Self-Care 01 Condition: Fair Clinical Impression: Weakness, Dehydration Stage 4 lung cancer Qualifiers: Laterality: right Qualified Code(s): C34.91 - Malignant neoplasm of unspecified part of right bronchus or lung - Discharge Information Instructions: Dehydration, Adult, [id number] Referrals: Marissa Phan PA [Primary Care Provider] - Forms: ED Department Discharge Care Plan Goals: Activity as tolerated, try to increase diet and fluids as tolerated. Return anytime if worsening or concerns, or consider rechecking next week with your regular doctors if not improving satisfactorily.
[2017-03-16 16:36] VITALS: BP 131/66
== END 2017-03-16 16:35 | disposition home or self-care (01) ==
LOC: JP.ED 13:32
DX: E86.0 Dehydration (principal); C34.91 Malignant neoplasm of unspecified part of right bronchus or lung; C79.31 Secondary malignant neoplasm of brain; Z91.048 Other nonmedicinal substance allergy status; Z88.1 Allergy status to other antibiotic agents; Z88.8 Allergy status to other drugs, medicaments and biological substances; Z91.041 Radiographic dye allergy status; Z88.5 Allergy status to narcotic agent; Z87.891 Personal history of nicotine dependence; Z79.899 Other long term (current) drug therapy
CPT/HCPCS: 36415; 80053; 81001; 84484; 85025; 96360; 96361; 99285; J7040; 99283

== ENCOUNTER 2017-04-03 14:15 | Observation (INO) | payer MEDICARE, OTHER ==
[2017-04-03] MEDS ORDERED: Sodium Chloride 0.9% 10 ML Syringe FLUSH PRN ×2 (14:41→17:17)
[2017-04-03] MEDS ORDERED: Lactated Ringers 1,000 ML IV ONE (14:41)
[2017-04-03] MEDS ORDERED: HYDROmorphone 0.5 MG/0.5 ML Syringe IVPUSH ONE (14:43)
[2017-04-03] MEDS ORDERED: Prochlorperazine 10 MG/2 ML SDV IVPUSH ONE (14:43)
--- NOTE | 2017-04-03 14:45 | EDM.PDOC ---
ED HPI GENERAL MEDICAL PROBLEM - General Chief Complaint: General Stated Complaint: DEHYDRATED Time Seen by Provider: 04/03/17 14:29 Source of Information: Reports: Patient, Family, Old Records, RN Notes Reviewed History Limitations: Reports: No Limitations - History of Present Illness INITIAL COMMENTS - FREE TEXT/NARRATIVE: 66-year-old female presents emergency department day complaint of weakness and dehydration she has had troubles with nausea and vomiting unable to keep food stuffs down does have a known history of lung cancer with metastases was in the emergency department on 1124 for same complaint Neck Pain Score (Numeric/FACES): 5 - Related Data Allergies Allergy/AdvReac Type Severity Reaction Status Date / Time adhesive tape Allergy Redness Verified 03/16/17 13:50 clarithromycin [From Biaxin] Allergy Hives Verified 03/16/17 13:50 glycerin [From Tucks] Allergy Hives Verified 03/16/17 13:50 metronidazole Allergy Hives Verified 03/16/17 13:50 mineral oil [From Tucks] Allergy Hives Verified 03/16/17 13:50 moxifloxacin HCl Allergy Cannot Verified 03/16/17 13:50 [From Avelox] Remember pramoxine HCl [From Tucks] Allergy Hives Verified 03/16/17 13:50 starch [From Tucks] Allergy Hives Verified 03/16/17 13:50 tetracycline [Tetracycline] Allergy Hives Verified 03/16/17 13:50 witch parris [From Tucks] Allergy Hives Verified 03/16/17 13:50 witch parris leaf [From Tucks] Allergy Hives Verified 03/16/17 13:50 zinc oxide [From Tucks] Allergy Hives Verified 03/16/17 13:50 Iodinated Contrast- Oral and AdvReac Stomach Verified 03/16/17 13:50 IV Dye Upset meperidine HCl [From Demerol] AdvReac Nausea and Verified 03/16/17 13:50 Vomiting Home Meds: Home Meds Omeprazole [Prilosec] 20 mg PO BEDTIME 09/26/13 [History] Prochlorperazine Maleate [Compazine] 10 mg PO Q6HR PRN 06/29/14 [History] Ondansetron [Zofran] 8 mg PO Q8H PRN 11/11/16 [History] Osimertinib Mesylate [Tagrisso] 80 mg PO DAILY 12/08/16 [History] Dexamethasone 4 mg PO BIDMEALS #30 tablet 12/11/16 [Rx] LORazepam [Ativan] 0.5 mg PO Q2H PRN #30 tablet 12/11/16 [Rx] traMADol [Ultram] 50 mg PO Q6H PRN 04/03/17 [History] Past Medical History HEENT History: Reports: Impaired Vision 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: , 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 Musculoskeletal History: Reports: Neck Pain, Chronic Hematologic History: Reports: Blood Transfusion(s) Immunologic History: Reports: Immunosuppression Oncologic (Cancer) History: Reports: Brain, Lung Other Oncologic History: Lung up trachea and spot on the spine - Infectious Disease History Infectious Disease History: Reports: Chicken Pox - Past Surgical History Other HEENT Surgeries/Procedures: METS TO THE BRAIN Respiratory Surgical History: Reports: Lung Biopsies Other Respiratory Surgeries/Procedures: LUNG CA GI Surgical History: Reports: Other (See Below) Other GI Surgeries/Procedures: endosinche of stomache. Female Surgical History: Reports: Hysterectomy, Other (See Below) Other Female Surgeries/Procedures: bladder repair Other Musculoskeletal Surgeries/Procedures:: METS TO SPINE Social & Family History - Family History Family Medical History: Noncontributory Oncologic: Reports: Other (See Below) - Tobacco Use Smoking Status *Q: Former Smoker Years of Tobacco use: 25 Packs/Tins Daily: 0.5 Used Tobacco, but Quit: Yes Month Tobacco Last Used: many years ago Second Hand Smoke Exposure: No - Caffeine Use Caffeine Use: Reports: Coffee - Alcohol Use Days Per Week of Alcohol Use: 0 - Recreational Drug Use Recreational Drug Use: No ED ROS GENERAL - Review of Systems Review Of Systems: See Below Constitutional: Reports: Weakness, Fatigue. Denies: Fever, Chills HEENT: Reports: No Symptoms Respiratory: Reports: No Symptoms Cardiovascular: Reports: No Symptoms GI/Abdominal: Reports: Nausea, Vomiting : Reports: No Symptoms Musculoskeletal: Reports: No Symptoms ED EXAM, GENERAL - Physical Exam Exam: See Below Exam Limited By: No Limitations General Appearance: Alert, WD/WN, No Apparent Distress Throat/Mouth: Normal Inspection, No Airway Compromise, Other (Dry posterior pharynx) Neck: Normal Inspection, Supple, Non-Tender, Full Range of Motion Respiratory/Chest: No Respiratory Distress, Lungs Clear, Normal Breath Sounds, No Accessory Muscle Use, Chest Non-Tender Cardiovascular: Regular Rate, Rhythm, No Murmur Course - Vital Signs Last Recorded V/S: Last Vital Signs Temp 98.4 F 04/03/17 14:19 Pulse 76 04/03/17 14:19 Resp 20 04/03/17 14:19 BP 126/73 04/03/17 14:19 Pulse Ox 96 04/03/17 14:19 - Orders/Labs/Meds Orders: Active Orders 24 hr Category Date Time Status Peripheral IV Care [RC] . DIRECTED Care 04/03/17 14:41 Active UA W/MICROSCOPIC [URIN] Urgent Lab 04/03/17 15:02 Ordered Lactated Ringers [Ringers, Lactated] 1,000 ml Med 04/03/17 14:41 Active IV BOLUS Sodium Chloride 0.9% [Saline Flush] Med 04/03/17 14:41 Active 10 ml FLUSH ASDIRECTED PRN Peripheral IV Insertion Adult [OM.PC] Urgent Oth 04/03/17 14:41 Ordered Medication Orders Lactated Ringer's (Ringers, Lactated) 1,000 mls @ 500 mls/hr IV BOLUS ONE Stop: 04/03/17 16:40 Last Admin: 04/03/17 14:55 Dose: 500 mls/hr Sodium Chloride (Saline Flush) 10 ml FLUSH ASDIRECTED PRN PRN Reason: Keep Vein Open Last Admin: 04/03/17 14:56 Dose: 10 ml Labs: Laboratory Tests 04/03/17 04/03/17 Range/Units 14:55 14:55 WBC 6.5 (4.5-11.0) K/uL RBC 3.70 (3.30-5.50) M/uL Hgb 11.3 L (12.0-15.0) g/dL Hct 34.4 L (36.0-48.0) % MCV 93 (80-98) fL MCH 31 (27-31) pg MCHC 33 (32-36) % Plt Count 122 L (150-400) K/uL Neut % (Auto) 88 H (36-66) % Lymph % (Auto) 7 L (24-44) % [place] % (Auto) 5 (2-6) % Eos % (Auto) 0 L (2-4) % Baso % (Auto) 0 (0-1) % Sodium 132 L (140-148) mmol/L Potassium 4.1 (3.6-5.2) mmol/L Chloride 100 (100-108) mmol/L Carbon Dioxide 23 (21-32) mmol/L Anion Gap 13.1 (5.0-14.0) mmol/L BUN 19 H D (7-18) mg/dL Creatinine 0.7 (0.6-1.0) mg/dL Est Cr Clr Drug Dosing 56.80 mL/min Estimated GFR (MDRD) > 60 (>60) Glucose 124 H (74-106) mg/dL Calcium 8.7 (8.5-10.1) mg/dL Total Bilirubin 0.7 D (0.2-1.0) mg/dL AST 16 (15-37) U/L ALT 17 (12-78) U/L Alkaline Phosphatase 37 L (46-116) U/L Total Protein 5.7 L (6.4-8.2) g/dL Albumin 3.0 L (3.4-5.0) g/dL Globulin 2.7 (2.3-3.5) g/dL Albumin/Globulin Ratio 1.1 L (1.2-2.2) Meds: Medications Generic Name Dose Route Start Last Admin Trade Name Freq PRN Reason Stop Dose Admin Lactated Ringer's 1,000 mls @ 500 mls/hr 04/03/17 14:41 04/03/17 14:55 Ringers, Lactated IV 04/03/17 16:40 500 mls/hr BOLUS ONE Administration Sodium Chloride 10 ml 04/03/17 14:41 04/03/17 14:56 Saline Flush FLUSH 10 ml ASDIRECTED PRN Administration Keep Vein Open Discontinued Medications Generic Name Dose Route Start Last Admin Trade Name Freq PRN Reason Stop Dose Admin Hydromorphone HCl 0.5 mg 04/03/17 14:43 04/03/17 15:01 Dilaudid IVPUSH 04/03/17 14:44 0.5 mg ONETIME ONE Administration Prochlorperazine Edisylate 5 mg 04/03/17 14:43 04/03/17 14:59 Compazine IVPUSH 04/03/17 14:44 5 mg ONETIME ONE Administration Departure - Departure Time of Disposition: 16:25 Disposition: Home, Self-Care 01 Condition: Poor Clinical Impression: Dehydration, Weakness Stage 4 lung cancer Qualifiers: Laterality: right Qualified Code(s): C34.91 - Malignant neoplasm of unspecified part of right bronchus or lung - Discharge Information Referrals: Marissa Phan PA [Primary Care Provider] - Forms: ED Department Discharge - My Orders Last 24 Hours: My Active Orders 04/03/17 14:41 Peripheral IV Care [RC] . DIRECTED Lactated Ringers [Ringers, Lactated] 1,000 ml IV BOLUS Sodium Chloride 0.9% [Saline Flush] 10 ml FLUSH ASDIRECTED PRN Peripheral IV Insertion Adult [OM.PC] Urgent 04/03/17 15:02 UA W/MICROSCOPIC [URIN] Urgent - Assessment/Plan Last 24 Hours: My Active Orders 04/03/17 14:41 Peripheral IV Care [RC] . DIRECTED Lactated Ringers [Ringers, Lactated] 1,000 ml IV BOLUS Sodium Chloride 0.9% [Saline Flush] 10 ml FLUSH ASDIRECTED PRN Peripheral IV Insertion Adult [OM.PC] Urgent 04/03/17 15:02 UA W/MICROSCOPIC [URIN] Urgent Plan: Assessment Acuity = acute Site and laterality = nausea and vomiting complicated patient with stage IV lung cancer Etiology = probably related to chemotherapy in disease progression Manifestations = intravascular volume depletion Location of injury = Home Lab values = hemoglobin low 11.3 consistent with normochromic anemia sodium low at 132 consistent with hyponatremia albumin low at 3.0 consistent hypoalbuminemia Plan Discussed the case with hospitalist iron piler he agreed to come and evaluate the patient in the emergency department for admission and further treatment Patient was in agreement with the plan all questions were answered This note was dictated using Boxed voice recognition software please call with any questions.
--- NOTE | 2017-04-03 17:05 | PCM.HP ---
H&P History of Present Illness - General Date of Service: 04/03/17 Admit Problem/Dx: Admission Diagnosis/Problem Admission Diagnosis/Problem Dehydration Source of Information: Patient, Family, Provider, RN Notes Reviewed History Limitations: Reports: No Limitations - History of Present Illness Initial Comments - Free Text/Narative: Ms. Watts is a 66-year-old woman with known metastatic lung cancer. She is currently receiving oral chemotherapy and has been told that there are no other options for further intervention. Over the past 6 weeks is lost ground becoming progressively more weak with very poor oral intake of liquids and solids. She was seen in the emergency department approximately 2 weeks ago and received fluids for hydration and management of dehydration. Since then she is experienced profound weakness and has had only minimal intake. She presented today for management of her dehydration, otherwise wants comfort cares only. Neck Pain Score (Numeric/FACES): 5 - Related Data Allergies/Adverse Reactions: Allergies Allergy/AdvReac Type Severity Reaction Status Date / Time adhesive tape Allergy Redness Verified 03/16/17 13:50 clarithromycin [From Biaxin] Allergy Hives Verified 03/16/17 13:50 glycerin [From Tucks] Allergy Hives Verified 03/16/17 13:50 metronidazole Allergy Hives Verified 03/16/17 13:50 mineral oil [From Tucks] Allergy Hives Verified 03/16/17 13:50 moxifloxacin HCl Allergy Cannot Verified 03/16/17 13:50 [From Avelox] Remember pramoxine HCl [From Tucks] Allergy Hives Verified 03/16/17 13:50 starch [From Tucks] Allergy Hives Verified 03/16/17 13:50 tetracycline [Tetracycline] Allergy Hives Verified 03/16/17 13:50 witch parris [From Tucks] Allergy Hives Verified 03/16/17 13:50 witch parris leaf [From Tucks] Allergy Hives Verified 03/16/17 13:50 zinc oxide [From Tucks] Allergy Hives Verified 03/16/17 13:50 Iodinated Contrast- Oral and AdvReac Stomach Verified 03/16/17 13:50 IV Dye Upset meperidine HCl [From Demerol] AdvReac Nausea and Verified 03/16/17 13:50 Vomiting Home Medications: Home Meds Omeprazole [Prilosec] 20 mg PO BEDTIME 09/26/13 [History] Prochlorperazine Maleate [Compazine] 10 mg PO Q6HR PRN 06/29/14 [History] Ondansetron [Zofran] 8 mg PO Q8H PRN 11/11/16 [History] Osimertinib Mesylate [Tagrisso] 80 mg PO DAILY 12/08/16 [History] Dexamethasone 4 mg PO BIDMEALS #30 tablet 12/11/16 [Rx] LORazepam [Ativan] 0.5 mg PO Q2H PRN #30 tablet 12/11/16 [Rx] traMADol [Ultram] 50 mg PO Q6H PRN 04/03/17 [History] Past Medical History HEENT History: Reports: Impaired Vision 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: , 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 Musculoskeletal History: Reports: Neck Pain, Chronic Hematologic History: Reports: Blood Transfusion(s) Immunologic History: Reports: Immunosuppression Oncologic (Cancer) History: Reports: Brain, Lung Other Oncologic History: Lung up trachea and spot on the spine - Infectious Disease History Infectious Disease History: Reports: Chicken Pox - Past Surgical History Other HEENT Surgeries/Procedures: METS TO THE BRAIN Respiratory Surgical History: Reports: Lung Biopsies Other Respiratory Surgeries/Procedures: LUNG CA GI Surgical History: Reports: Other (See Below) Other GI Surgeries/Procedures: endosinche of stomache. Female Surgical History: Reports: Hysterectomy, Other (See Below) Other Female Surgeries/Procedures: bladder repair Other Musculoskeletal Surgeries/Procedures:: METS TO SPINE Social & Family History - Family History Family Medical History: Noncontributory Oncologic: Reports: Other (See Below) - Tobacco Use Smoking Status *Q: Former Smoker Years of Tobacco use: 25 Packs/Tins Daily: 0.5 Used Tobacco, but Quit: Yes Month Tobacco Last Used: many years ago Second Hand Smoke Exposure: No - Caffeine Use Caffeine Use: Reports: Coffee - Alcohol Use Days Per Week of Alcohol Use: 0 - Recreational Drug Use Recreational Drug Use: No H&P Review of Systems - Review of Systems: Review Of Systems: Unable To Obtain General: Reports: ROS unobtainable (Unable to obtain because of weakness and sedation) Exam - Exam Exam: See Below - Vital Signs Vital Signs: Last Vital Signs Temp 98.4 F 12/12/17 14:19 Pulse 76 04/03/17 14:19 Resp 20 04/03/17 14:19 BP 126/73 04/03/17 14:19 Pulse Ox 96 04/03/17 14:19 Weight: 99 lb - Exam Quality Assessment: DVT Prophylaxis General: Sedated, Lethargic HEENT: Conjunctiva Clear, Hearing Intact, Normal Nasal Septum, Posterior Pharynx Clear, Pupils Equal. No: Mucosa Moist & [place] Neck: Supple, Trachea Midline, +2 Carotid Pulse wo Bruit Lungs: Clear to Auscultation, Normal Respiratory Effort Cardiovascular: Regular Rate, Regular Rhythm, Normal S1, Normal S2. No: Systolic Murmur, Diastolic Murmur GI/Abdominal Exam: Soft, Non-Tender, No Organomegaly, No Distention Extremities: Non-Tender, No Pedal Edema Skin: Warm, Dry - Patient Data Lab Results Last 24 hrs: Laboratory Results - last 24 hr 04/03/17 04/03/17 Range/Units 14:55 14:55 WBC 6.5 (4.5-11.0) K/uL RBC 3.70 (3.30-5.50) M/uL Hgb 11.3 L (12.0-15.0) g/dL Hct 34.4 L (36.0-48.0) % MCV 93 (80-98) fL MCH 31 (27-31) pg MCHC 33 (32-36) % Plt Count 122 L (150-400) K/uL Neut % (Auto) 88 H (36-66) % Lymph % (Auto) 7 L (24-44) % [place] % (Auto) 5 (2-6) % Eos % (Auto) 0 L (2-4) % Baso % (Auto) 0 (0-1) % Sodium 132 L (140-148) mmol/L Potassium 4.1 (3.6-5.2) mmol/L Chloride 100 (100-108) mmol/L Carbon Dioxide 23 (21-32) mmol/L Anion Gap 13.1 (5.0-14.0) mmol/L BUN 19 H D (7-18) mg/dL Creatinine 0.7 (0.6-1.0) mg/dL Est Cr Clr Drug Dosing 56.80 mL/min Estimated GFR (MDRD) > 60 (>60) Glucose 124 H (74-106) mg/dL Calcium 8.7 (8.5-10.1) mg/dL Total Bilirubin 0.7 D (0.2-1.0) mg/dL AST 16 (15-37) U/L ALT 17 (12-78) U/L Alkaline Phosphatase 37 L (46-116) U/L Total Protein 5.7 L (6.4-8.2) g/dL Albumin 3.0 L (3.4-5.0) g/dL Globulin 2.7 (2.3-3.5) g/dL Albumin/Globulin Ratio 1.1 L (1.2-2.2) Result Diagrams: 04/03/17 14:55 04/03/17 14:55 *Q Meaningful Use (ADM) - VTE *Q VTE Criteria *Q: - VTE Risk Assess *Q Each Risk Factor Represents 1 Point: None Total Score 1 Point Risk Factors: 0 Each Risk Factor Represents 2 Points: Age 60 - 74 Years, Malignancy (present or previous) Total Score 2 Point Risk Factors: 4 Each Risk Factor Represents 3 Points: None Total Score 3 Point Risk Factors: 0 Each Risk Factor Represents 5 Points: None Total Score 5 Point Risk Factors: 0 Venous Thromboembolism Risk Factor Score *Q: 4 - Stroke *Q Stroke Criteria *Q: - AMI *Q AMI Criteria *Q: Problem List Initiated/Reviewed/Updated: Yes Orders Last 24hrs: Active Orders 24 hr Category Date Time Status Patient Status Manage Transfer [TRANSFER] Routine ADT 04/03/17 16:46 Ordered Peripheral IV Care [RC] . DIRECTED Care 04/03/17 14:41 Active UA W/MICROSCOPIC [URIN] Urgent Lab 04/03/17 15:02 Ordered Sodium Chloride 0.9% [Saline Flush] Med 04/03/17 14:41 Active 10 ml FLUSH ASDIRECTED PRN Peripheral IV Insertion Adult [OM.PC] Urgent Oth 04/03/17 14:41 Ordered Resuscitation Status Routine Resus Stat 04/03/17 16:48 Ordered Medication Orders Sodium Chloride (Saline Flush) 10 ml FLUSH ASDIRECTED PRN PRN Reason: Keep Vein Open Last Admin: 04/03/17 14:56 Dose: 10 ml Assessment/Plan Comment:: ASSESSMENT AND PLAN DEHYDRATION-secondary to poor oral intake, she is also developed severe progressive weakness. -IV fluids for hydration END-STAGE METASTATIC LUNG CANCER-progressive and worsening symptoms despite current oral chemotherapy. -Pain medication as needed -Anti-medic therapy as needed -Encourage patient and to consider hospice cares for ongoing management PALLIATIVE CARE-she would like fluids for hydration at this time but does not otherwise want aggressive interventions MAINTENANCE ISSUES -DVT prophylaxis; Lovenox 40 mg subcutaneous daily -GI prophylaxis; continue proton pump inhibitor therapy -Gilliam catheter; not indicated -Nutrition; regular diet -Nicotinic dependence; not required CODE STATUS-DNR/DNI, COMFORT CARES ADMISSION STATUS-this patient will be admitted to observation status, expect no more than a one night hospital stay for evaluation and management of problems as outlined above. DISPOSITION-anticipate discharge to home after the hospital stay. PRIMARY CARE PROVIDER-Marissa Phan
[2017-04-03] MEDS ORDERED: HYDROmorphone 0.5 MG/0.5 ML Syringe IVPUSH PRN (17:17)
[2017-04-03] MEDS ORDERED: Acetaminophen 325 MG Tab PO PRN (17:17)
[2017-04-03] MEDS ORDERED: Docusate Sodium 100 MG Cap PO PRN (17:17)
[2017-04-03] MEDS ORDERED: oxyCODONE 5 MG Tab PO PRN (17:17)
[2017-04-03] MEDS ORDERED: Lactated Ringers 500 ML IV SCH (17:17)
[2017-04-03] MEDS ORDERED: LORazepam 2 MG/ML MDV IVPUSH PRN (17:17)
[2017-04-03] MEDS ORDERED: Polyethylene Glycol 3350 Powder 17 GM Packet PO PRN (17:17)
[2017-04-03] MEDS ORDERED: Magnesium Hydroxide 400 MG/5 ML Susp 30 ML Cup PO PRN (17:17)
[2017-04-03] MEDS ORDERED: Pantoprazole 40 MG Vial IVPUSH SCH (17:30)
[2017-04-03] MEDS: Dexamethasone 4 MG/ML SDV IVPUSH SCH (18:28)
[2017-04-03] MEDS: Ondansetron 4 MG/2 ML SDV IV PRN (19:33)
[2017-04-03] MEDS: Enoxaparin 40 MG/0.4 ML Syringe SUBCUT SCH (19:38)
[2017-04-03] MEDS: Lactated Ringers 1,000 ML IV SCH (23:55)
[2017-04-04] MEDS: Dexamethasone 4 MG/ML SDV IVPUSH SCH (05:39)
[2017-04-04] MEDS: Ondansetron 4 MG/2 ML SDV IV PRN ×2 (05:50→14:11)
[2017-04-04] MEDS: Lactated Ringers 1,000 ML IV SCH (07:53)
[2017-04-04] MEDS ORDERED: LORazepam 0.5 MG Tab PO PRN (10:52)
--- NOTE | 2017-04-04 10:57 | PCM.PN ---
- General Info Date of Service: 04/04/17 Subjective Update: Ms. Watts has improved today with hydration overnight. Pain control has been adequate but she would like to get back on her usual therapy with tramadol. Long discussion today concerning her wishes for ongoing management, she would like to stop her oral chemotherapy she does not feel as though it's helping and may be contributing to some of her symptoms. She is not quite ready to consider hospice. Functional Status: Reports: Pain Controlled - Review of Systems General: Reports: Weakness. Denies: Fever, Chills Pulmonary: Reports: No Symptoms Cardiovascular: Reports: No Symptoms Gastrointestinal: Reports: No Symptoms - Patient Data Vitals - Most Recent: Last Vital Signs Temp 95.8 F 04/04/17 07:17 Pulse 69 04/04/17 07:17 Resp 18 04/04/17 07:17 BP 138/62 04/04/17 07:17 Pulse Ox 99 04/04/17 07:17 Weight - Most Recent: 99 lb 0.012 oz I&O - Last 24 Hours: Intake & Output 04/03/17 04/04/17 04/04/17 22:59 06:59 14:59 Intake Total 700 1311 480 Output Total 200 Balance 700 1111 480 Lab Results Last 24 Hours: Laboratory Results - last 24 hr 04/03/17 Range/Units 17:33 Urine Color Yellow Urine Appearance Cloudy Urine pH 5.0 (4.5-8.0) Ur Specific [place] 1.010 (1.008-1.030) Urine Protein Negative (NEGATIVE) mg/dL Urine Glucose (UA) Normal (NEGATIVE) mg/dL Urine Ketones 15 H (NEGATIVE) mg/dL Urine Occult Blood Negative (NEGATIVE) Urine Nitrite Negative (NEGATIVE) Urine Bilirubin Negative (NEGATIVE) Urine Urobilinogen Normal (NORMAL) mg/dL Ur Leukocyte Esterase Large (NEGATIVE) Urine RBC 0-5 (0-5) Urine WBC 50-75 H (0-5) Ur Epithelial Cells Few Amorphous Sediment Not seen Urine Bacteria Many Urine Mucus Not seen Med Orders - Current: Current Medications Acetaminophen (Tylenol) 650 mg PO Q4H PRN PRN Reason: Pain (Mild 1-3)/fever Last Admin: 04/04/17 05:50 Dose: 650 mg Docusate Sodium (Colace) 100 mg PO BID PRN PRN Reason: Constipation Enoxaparin Sodium (Lovenox) 40 mg SUBCUT Q24H [facility] Last Admin: 04/03/17 19:38 Dose: 40 mg Hydromorphone HCl (Dilaudid) 0.5 mg IVPUSH Q2H PRN PRN Reason: Pain Lorazepam (Ativan) 0.5 mg IVPUSH Q4H PRN PRN Reason: Anxiety Magnesium Hydroxide (Milk Of Magnesia) 30 ml PO Q12H PRN PRN Reason: Constipation Ondansetron HCl (Zofran) 4 mg IV Q4H PRN PRN Reason: Nausea/Vomiting Last Admin: 04/04/17 05:50 Dose: 4 mg Polyethylene Glycol (Miralax) 17 gm PO DAILY PRN PRN Reason: Constipation Sodium Chloride (Saline Flush) 10 ml FLUSH ASDIRECTED PRN PRN Reason: Keep Vein Open Discontinued Medications Dexamethasone (Dexamethasone) 4 mg IVPUSH Q12H [facility] Last Admin: 04/04/17 05:39 Dose: 4 mg Hydromorphone HCl (Dilaudid) 0.5 mg IVPUSH ONETIME ONE Stop: 04/03/17 14:44 Last Admin: 04/03/17 15:01 Dose: 0.5 mg Lactated Ringer's (Ringers, Lactated) 1,000 mls @ 500 mls/hr IV BOLUS ONE Stop: 04/03/17 16:40 Last Admin: 04/03/17 14:55 Dose: 500 mls/hr Lactated Ringer's (Ringers, Lactated) 500 mls @ 250 mls/hr IV .BOLUS CASSIE Stop: 04/03/17 21:18 Last Admin: 04/03/17 17:58 Dose: 250 mls/hr Lactated Ringer's (Ringers, Lactated) 1,000 mls @ 125 mls/hr IV ASDIRECTED [facility] Last Admin: 04/04/17 07:53 Dose: 125 mls/hr Oxycodone HCl (Oxycodone) 5 mg PO Q4H PRN PRN Reason: Pain (moderate 4-6) Last Admin: 04/04/17 01:48 Dose: 5 mg Pantoprazole Sodium (Protonix Iv) 40 mg IVPUSH Q24H [facility] Last Admin: 04/03/17 18:06 Dose: 40 mg Prochlorperazine Edisylate (Compazine) 5 mg IVPUSH ONETIME ONE Stop: 04/03/17 14:44 Last Admin: 04/03/17 14:59 Dose: 5 mg Sodium Chloride (Saline Flush) 10 ml FLUSH ASDIRECTED PRN PRN Reason: Keep Vein Open Last Admin: 04/03/17 14:56 Dose: 10 ml - Exam Quality Assessment: DVT Prophylaxis General: Alert, Oriented, Cooperative, Mild Distress Lungs: Clear to Auscultation, Normal Respiratory Effort Cardiovascular: Regular Rate, Regular Rhythm, No Murmurs GI/Abdominal Exam: Soft, Non-Tender, No Organomegaly, No Distention Extremities: Non-Tender, No Pedal Edema Skin: Warm, Dry - Problem List Review Problem List Initiated/Reviewed/Updated: Yes - My Orders Last 24 Hours: My Active Orders 04/03/17 16:48 Resuscitation Status Routine 04/03/17 17:17 Patient Status [ADT] Routine Ambulate [RC] QID Intake and Output [RC] Q12H Notify Provider Vital Signs [RC] ASDIRECTED Oxygen Therapy [RC] PRN Peripheral IV Care [RC] Q12H Up to Chair [RC] QID VTE/DVT Education [RC] .PRN Vital Signs [RC] Q4H Acetaminophen [Tylenol] 650 mg PO Q4H PRN Docusate Sodium [Colace] 100 mg PO BID PRN HYDROmorphone [Dilaudid] 0.5 mg IVPUSH Q2H PRN LORazepam [Ativan] 0.5 mg IVPUSH Q4H PRN Magnesium Hydroxide [Milk of Magnesia] 30 ml PO Q12H PRN Ondansetron [Zofran] 4 mg IV Q4H PRN Polyethylene Glycol 3350 [MiraLAX] 17 gm PO DAILY PRN Sodium Chloride 0.9% [Saline Flush] 10 ml FLUSH ASDIRECTED PRN Peripheral IV Insertion Adult [OM.PC] Routine 04/03/17 20:00 Enoxaparin [Lovenox] 40 mg SUBCUT Q24H 04/03/17 Dinner Regular Diet [DIET] 04/04/17 08:49 Air Mattress [Pressure Reduction Mattress] [OM.PC] Routine 04/04/17 10:51 Convert IV to Saline Lock [OM.PC] Routine 04/04/17 10:52 LORazepam [Ativan] 0.5 mg PO Q2H PRN traMADol [Ultram] 50 mg PO Q4H PRN 04/04/17 17:00 Dexamethasone 4 mg PO BIDMEALS 04/04/17 21:00 Omeprazole [Prilosec] 20 mg PO BEDTIME - Plan Plan:: ASSESSMENT AND PLAN DEHYDRATION-improved with hydration -Saline lock IV -Monitor intake of liquids over the next 24 hours to make sure that she is able to keep herself hydrated END-STAGE METASTATIC LUNG CANCER-progressive and worsening symptoms despite current oral chemotherapy. -Pain medication as needed -Anti-medic therapy as needed -She is not yet ready to consider hospice care PALLIATIVE CARE-she would like fluids for hydration at this time but does not otherwise want aggressive interventions MAINTENANCE ISSUES -DVT prophylaxis; Lovenox 40 mg subcutaneous daily -GI prophylaxis; continue proton pump inhibitor therapy -Gilliam catheter; not indicated -Nutrition; regular diet -Nicotinic dependence; not required CODE STATUS-DNR/DNI, COMFORT CARES ADMISSION STATUS-this patient will be admitted to observation status, expect no more than a one night hospital stay for evaluation and management of problems as outlined above. DISPOSITION-anticipate discharge to home after the hospital stay. PRIMARY CARE PROVIDER-Marissa Phan
[2017-04-04] MEDS: traMADol 50 MG Tab PO PRN ×2 (11:19→22:40)
[2017-04-04] MEDS: Dexamethasone 4 MG Tab PO SCH (17:12)
[2017-04-04] MEDS: Pantoprazole 40 MG Tab.CR PO SCH (17:16)
[2017-04-04] MEDS: Hypromellose 0.4% Ophth Soln 15 ML Bottle EYEBOTH PRN ×2 (18:06→21:22)
[2017-04-04] MEDS ORDERED: Pantoprazole 40 MG Tab.CR PO SCH (21:00)
[2017-04-04] MEDS: Enoxaparin 40 MG/0.4 ML Syringe SUBCUT SCH (21:22)
[2017-04-05] MEDS: Dexamethasone 4 MG Tab PO SCH (08:14)
[2017-04-05] MEDS: Pantoprazole 40 MG Tab.CR PO SCH (08:14)
[2017-04-05] MEDS: Hypromellose 0.4% Ophth Soln 15 ML Bottle EYEBOTH PRN (08:29)
[2017-04-05 11:34] VITALS: BP 101/61
--- NOTE | 2017-04-05 12:08 | PCM.DCSUM1 ---
Discharge Summary - Hospital Course Brief History: Ms. Watts is a 66-year-old woman with known stage IV lung cancer and documented metastatic disease to the brain as well as bone. She was admitted to observation status through the emergency department because of progressive weakness and dehydration related to poor oral intake. - Discharge Data Discharge Date: 04/05/17 Discharge Disposition: Home, Self-Care 01 Condition: Poor - Discharge Diagnosis/Problem(s) (1) Dehydration SNOMED Code(s): 47897214 ICD Code: E86.0 - DEHYDRATION Status: Acute Current Visit: Yes (2) Weakness SNOMED Code(s): 99250800 ICD Code: R53.1 - WEAKNESS Status: Acute Current Visit: Yes (3) Palliative care encounter SNOMED Code(s): 581837557 ICD Code: Z51.5 - ENCOUNTER FOR PALLIATIVE CARE Status: Chronic Current Visit: No (4) History of recent chemotherapy SNOMED Code(s): 177269725 ICD Code: [id number] - Status: Chronic Current Visit: No (5) Lung cancer metastatic to bone SNOMED Code(s): 86993245 ICD Code: C34.90 - MALIGNANT NEOPLASM OF UNSP PART OF UNSP BRONCHUS OR LUNG; C79.51 - SECONDARY MALIGNANT NEOPLASM OF BONE Status: Chronic Current Visit : No (6) Brain metastasis Status: Chronic Current Visit: No - Patient Summary/Data Hospital Course: Ms. Watts is a 66-year-old woman who has experienced progressive physical decline over the past several weeks. She has known stage IV lung cancer with metastatic disease to the brain and bone. Up until the time of admission she had been receiving oral chemotherapy. Oral intake had significantly declined over the past few weeks resulting in dehydration with ongoing nausea and vomiting. On admission she was given IV fluids for hydration as well as antiemetic therapy and pain medication as needed. Following day she was feeling somewhat better and we discussed her wishes for ongoing care and management. She confirmed that she wanted to be DNR/DNI with comfort measures but is not yet ready to consider hospice care. On the day of discharge was feeling somewhat stronger and oral intake had improved modestly. She does have a follow- up appointment pending with her oncology provider for April 10 and a follow-up appointment will be scheduled with her primary care provider within one week. Activity will be as tolerated and she will resume her usual diet. She is aware that hospice services are available when she decides that she would like to proceed with that management. - Patient Instructions Diet: Usual Diet as Tolerated Activity: As Tolerated Other/Special Instructions: Patient already has a follow-up appointment with oncology for April 10. Please schedule follow-up appointment with primary care provider within one week. - Discharge Plan Home Medications: Home Meds Omeprazole [Prilosec] 20 mg PO BEDTIME 09/26/13 [History] Prochlorperazine Maleate [Compazine] 10 mg PO Q6HR PRN 06/29/14 [History] Ondansetron [Zofran] 8 mg PO Q8H PRN 11/11/16 [History] Dexamethasone 4 mg PO BIDMEALS #30 tablet 12/11/16 [Rx] LORazepam [Ativan] 0.5 mg PO Q2H PRN #30 tablet 12/11/16 [Rx] traMADol [Ultram] 50 mg PO Q6H PRN 04/03/17 [History] Referrals: Marissa Phan PA [Primary Care Provider] - ([facility]; Physical,Occupational therapy, and home health aide services.) - Patient Data Vitals - Most Recent: Last Vital Signs Temp 96.6 F 04/05/17 11:33 Pulse 73 04/05/17 11:33 Resp 18 04/05/17 11:33 BP 101/61 04/05/17 11:33 Pulse Ox 95 04/05/17 11:33 Weight - Most Recent: 99 lb 0.012 oz I&O - Last 24 hours: Intake & Output 04/04/17 04/05/17 04/05/17 22:59 06:59 14:59 Intake Total 340 Output Total 175 Balance 165 Med Orders - Current: Current Medications Acetaminophen (Tylenol) 650 mg PO Q4H PRN PRN Reason: Pain (Mild 1-3)/fever Last Admin: 04/04/17 05:50 Dose: 650 mg Artificial Tears (Natural Balance Tears) 0 ml EYEBOTH Q4H PRN PRN Reason: Dry Eyes Last Admin: 04/05/17 08:29 Dose: 1 drop Dexamethasone (Dexamethasone) 4 mg PO BIDMEALS CASSIE Last Admin: 04/05/17 08:14 Dose: 4 mg Docusate Sodium (Colace) 100 mg PO BID PRN PRN Reason: Constipation Enoxaparin Sodium (Lovenox) 40 mg SUBCUT Q24H [facility] Last Admin: 04/04/17 21:22 Dose: 40 mg Hydromorphone HCl (Dilaudid) 0.5 mg IVPUSH Q2H PRN PRN Reason: Pain Lorazepam (Ativan) 0.5 mg IVPUSH Q4H PRN PRN Reason: Anxiety Last Admin: 04/04/17 15:11 Dose: 0.5 mg Lorazepam (Ativan) 0.5 mg PO Q2H PRN PRN Reason: Nausea Magnesium Hydroxide (Milk Of Magnesia) 30 ml PO Q12H PRN PRN Reason: Constipation Ondansetron HCl (Zofran) 4 mg IV Q4H PRN PRN Reason: Nausea/Vomiting Last Admin: 04/04/17 14:11 Dose: 4 mg Pantoprazole Sodium (Protonix) 40 mg PO ACBREAKFAST [facility] Last Admin: 04/05/17 08:14 Dose: 40 mg Polyethylene Glycol (Miralax) 17 gm PO DAILY PRN PRN Reason: Constipation Sodium Chloride (Saline Flush) 10 ml FLUSH ASDIRECTED PRN PRN Reason: Keep Vein Open Tramadol HCl (Ultram) 50 mg PO Q4H PRN PRN Reason: Pain (moderate 4-6) Last Admin: 04/04/17 22:40 Dose: 50 mg Discontinued Medications Dexamethasone (Dexamethasone) 4 mg IVPUSH Q12H [facility] Last Admin: 04/04/17 05:39 Dose: 4 mg Hydromorphone HCl (Dilaudid) 0.5 mg IVPUSH ONETIME ONE Stop: 04/03/17 14:44 Last Admin: 04/03/17 15:01 Dose: 0.5 mg Lactated Ringer's (Ringers, Lactated) 1,000 mls @ 500 mls/hr IV BOLUS ONE Stop: 04/03/17 16:40 Last Admin: 04/03/17 14:55 Dose: 500 mls/hr Lactated Ringer's (Ringers, Lactated) 500 mls @ 250 mls/hr IV .BOLUS CASSIE Stop: 04/03/17 21:18 Last Admin: 04/03/17 17:58 Dose: 250 mls/hr Lactated Ringer's (Ringers, Lactated) 1,000 mls @ 125 mls/hr IV ASDIRECTED CASSIE Last Admin: 04/04/17 07:53 Dose: 125 mls/hr Oxycodone HCl (Oxycodone) 5 mg PO Q4H PRN PRN Reason: Pain (moderate 4-6) Last Admin: 04/04/17 01:48 Dose: 5 mg Pantoprazole Sodium (Protonix Iv) 40 mg IVPUSH Q24H CASSIE Last Admin: 04/03/17 18:06 Dose: 40 mg Pantoprazole Sodium (Protonix) 40 mg PO BEDTIME CASSIE Prochlorperazine Edisylate (Compazine) 5 mg IVPUSH ONETIME ONE Stop: 04/03/17 14:44 Last Admin: 04/03/17 14:59 Dose: 5 mg Sodium Chloride (Saline Flush) 10 ml FLUSH ASDIRECTED PRN PRN Reason: Keep Vein Open Last Admin: 04/03/17 14:56 Dose: 10 ml *Q Meaningful Use (DIS) - VTE *Q VTE Criteria *Q: - Stroke *Q Stroke Criteria *Q: - AMI *Q AMI Criteria *Q:
== END 2017-04-05 12:45 | disposition home or self-care (01) ==
LOC: JP.ED 14:15 → JP.MS 16:46
PROVIDERS: ADMIT Hospitalist; ATTEND Hospitalist
DX: E86.0 Dehydration (principal); R53.1 Weakness; C34.90 Malignant neoplasm of unspecified part of unspecified bronchus or lung; C79.51 Secondary malignant neoplasm of bone; C79.31 Secondary malignant neoplasm of brain; K21.9 Gastro-esophageal reflux disease without esophagitis; Z51.5 Encounter for palliative care; Z92.21 Personal history of antineoplastic chemotherapy; Z79.899 Other long term (current) drug therapy; Z88.1 Allergy status to other antibiotic agents; Z88.8 Allergy status to other drugs, medicaments and biological substances; Z91.09 Other allergy status, other than to drugs and biological substances; Z91.041 Radiographic dye allergy status; Z87.891 Personal history of nicotine dependence
CPT/HCPCS: 36415; 80053; 81001; 85025; 96361; 96372; 96374; 96375; 96376; 99285; A9270; C9113; G0378; J0780; J1100; J1170; J1650; J2060; J2405; J7050; J7120; J8540; 99217; 99219; 99224; 99284

== ENCOUNTER 2017-04-08 10:53 | Observation (INO) | payer MEDICARE, OTHER ==
[2017-04-08] MEDS ORDERED: Ondansetron 4 MG/2 ML SDV IVPUSH ONE (11:13)
[2017-04-08] MEDS ORDERED: HYDROmorphone 0.5 MG/0.5 ML Syringe IVPUSH ONE (11:14)
[2017-04-08] MEDS ORDERED: Sodium Chloride 0.9% 1,000 ML IV SCH ×2 (11:30→17:15)
--- NOTE | 2017-04-08 11:43 | EDM.PDOC ---
ED HPI GENERAL MEDICAL PROBLEM - General Chief Complaint: Gastrointestinal Problem Stated Complaint: PAIN IN CHEST AND SIDE Time Seen by Provider: 04/08/17 11:35 Source of Information: Reports: Patient, Family History Limitations: Reports: No Limitations - History of Present Illness INITIAL COMMENTS - FREE TEXT/NARRATIVE: pt was just discharged from the hosp. She has not been able to hold anything down . She is not holding her pain meds down. She is ready to go to Hospice. Stopping her chemo has not made a difference in her vomiting. She has not had a bm for 1 week, Onset: Gradual, Other (pt has vomited everything she has taken in since she was discharged. ) Duration: Hour(s):, Getting Worse Location: Reports: Other ( She has severe burning pain under the rt breast area. ) Associated Symptoms: Reports: Nausea/Vomiting, Other ( increased pain under the rt breast. ) - Related Data Allergies Allergy/AdvReac Type Severity Reaction Status Date / Time adhesive tape Allergy Redness Verified 04/08/17 11:00 clarithromycin [From Biaxin] Allergy Hives Verified 04/08/17 11:00 glycerin [From Tucks] Allergy Hives Verified 04/08/17 11:00 metronidazole Allergy Hives Verified 04/08/17 11:00 mineral oil [From Tucks] Allergy Hives Verified 04/08/17 11:00 moxifloxacin HCl Allergy Cannot Verified 04/08/17 11:00 [From Avelox] Remember pramoxine HCl [From Tucks] Allergy Hives Verified 04/08/17 11:00 starch [From Tucks] Allergy Hives Verified 04/08/17 11:00 tetracycline [Tetracycline] Allergy Hives Verified 04/08/17 11:00 witch parris [From Tucks] Allergy Hives Verified 04/08/17 11:00 witch parris leaf [From Tucks] Allergy Hives Verified 04/08/17 11:00 zinc oxide [From Tucks] Allergy Hives Verified 04/08/17 11:00 Iodinated Contrast- Oral and AdvReac Stomach Verified 04/08/17 11:00 IV Dye Upset meperidine HCl [From Demerol] AdvReac Nausea and Verified 04/08/17 11:00 Vomiting Home Meds: Home Meds Omeprazole [Prilosec] 20 mg PO BEDTIME 09/26/13 [History] Dexamethasone 4 mg PO BIDMEALS #30 tablet 12/11/16 [Rx] LORazepam [Ativan] 0.5 mg PO Q2H PRN #30 tablet 12/11/16 [Rx] traMADol [Ultram] 50 mg PO Q6H PRN 04/03/17 [History] Past Medical History HEENT History: Reports: Impaired Vision Respiratory History: Reports: None Gastrointestinal History: Reports: GERD Genitourinary History: Reports: None 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: , 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 Musculoskeletal History: Reports: Neck Pain, Chronic Hematologic History: Reports: Blood Transfusion(s) Immunologic History: Reports: Immunosuppression Oncologic (Cancer) History: Reports: Brain, Lung Other Oncologic History: Lung up trachea and spot on the spine - Infectious Disease History Infectious Disease History: Reports: Chicken Pox - Past Surgical History Other HEENT Surgeries/Procedures: METS TO THE BRAIN Respiratory Surgical History: Reports: Lung Biopsies Other Respiratory Surgeries/Procedures: LUNG CA GI Surgical History: Reports: Other (See Below) Other GI Surgeries/Procedures: endosinche of stomache. Female Surgical History: Reports: Hysterectomy, Other (See Below) Other Female Surgeries/Procedures: bladder repair Other Musculoskeletal Surgeries/Procedures:: METS TO SPINE Oncologic Surgical History: Reports: None Social & Family History - Family History Family Medical History: Noncontributory Oncologic: Reports: Other (See Below) - Tobacco Use Smoking Status *Q: Never Smoker Years of Tobacco use: 20 Packs/Tins Daily: 0.5 Used Tobacco, but Quit: Yes Month Tobacco Last Used: september Second Hand Smoke Exposure: No - Caffeine Use Caffeine Use: Reports: Coffee, Tea - Alcohol Use Days Per Week of Alcohol Use: 0 - Recreational Drug Use Recreational Drug Use: No ED ROS GENERAL - Review of Systems Review Of Systems: See Below Constitutional: Reports: No Symptoms HEENT: Reports: No Symptoms, Vertigo Cardiovascular: Reports: No Symptoms Endocrine: Reports: No Symptoms GI/Abdominal: Reports: Constipation, Nausea, Vomiting, Other (pain under the rt breast. Pt has not had a stool for 1 week. ) : Reports: No Symptoms Musculoskeletal: Reports: No Symptoms Skin: Reports: No Symptoms Neurological: Reports: Headache ED EXAM, GI/ABD - Physical Exam Exam: See Below Text/Narrative:: Pt has been very uncomfortable. She has been vomiting continuously. Exam Limited By: No Limitations General Appearance: Alert, Anxious, Severe Distress Ears: Normal TMs Nose: Normal Inspection Throat/Mouth: Normal Inspection Head: Atraumatic Neck: Normal Inspection Respiratory/Chest: No Respiratory Distress Cardiovascular: Regular Rate, Rhythm, Tachycardia GI/Abdominal Exam: Other (pt is having severe burning pain under the rt breast. ) Rectal (Female) Exam: Other ( no stool present in the rectum) Neurological: Alert, Other (pt is very uncomfortable. ) Course - Vital Signs Last Recorded V/S: Last Vital Signs Temp 35.9 C 04/08/17 11:29 Pulse 71 04/08/17 11:29 Resp 16 04/08/17 11:29 BP 93/42 L 04/08/17 11:29 Pulse Ox 94 L 04/08/17 11:29 - Orders/Labs/Meds Orders: Active Orders 24 hr Category Date Time Status UA W/MICROSCOPIC [URIN] Urgent Lab 04/08/17 11:13 Uncollected Sodium Chloride 0.9% [Normal Saline] 1,000 ml Med 04/08/17 11:30 Active IV ASDIRECTED Medication Orders Sodium Chloride (Normal Saline) 1,000 mls @ 300 mls/hr IV ASDIRECTED CASSIE Last Admin: 04/08/17 11:30 Dose: 300 mls/hr Labs: Laboratory Tests 04/08/17 04/08/17 Range/Units 11:13 11:22 WBC 10.2 (4.5-11.0) K/uL RBC 4.01 (3.30-5.50) M/uL Hgb 12.3 (12.0-15.0) g/dL Hct 37.2 (36.0-48.0) % MCV 93 (80-98) fL MCH 31 (27-31) pg MCHC 33 (32-36) % Plt Count 159 (150-400) K/uL Neut % (Auto) 84 H (36-66) % Lymph % (Auto) 7 L (24-44) % [place] % (Auto) 9 H (2-6) % Eos % (Auto) 0 L (2-4) % Baso % (Auto) 0 (0-1) % Sodium 135 L (140-148) mmol/L Potassium 3.5 L (3.6-5.2) mmol/L Chloride 99 L (100-108) mmol/L Carbon Dioxide 23 (21-32) mmol/L Anion Gap 16.5 H (5.0-14.0) mmol/L BUN 18 (7-18) mg/dL Creatinine 0.8 (0.6-1.0) mg/dL Est Cr Clr Drug Dosing 48.70 mL/min Estimated GFR (MDRD) > 60 (>60) Glucose 140 H (74-106) mg/dL Calcium 8.7 (8.5-10.1) mg/dL Total Bilirubin 0.9 (0.2-1.0) mg/dL AST 16 (15-37) U/L ALT 25 (12-78) U/L Alkaline Phosphatase 46 (46-116) U/L Total Protein 6.1 L (6.4-8.2) g/dL Albumin 3.2 L (3.4-5.0) g/dL Globulin 2.9 (2.3-3.5) g/dL Albumin/Globulin Ratio 1.1 L (1.2-2.2) Meds: Medications Generic Name Dose Route Start Last Admin Trade Name Freq PRN Reason Stop Dose Admin Sodium Chloride 1,000 mls @ 300 mls/hr 04/08/17 11:30 04/08/17 11:30 Normal Saline IV 300 mls/hr ASDIRECTED CASSIE Administration Discontinued Medications Generic Name Dose Route Start Last Admin Trade Name Freq PRN Reason Stop Dose Admin Hydromorphone HCl 0.5 mg 04/08/17 11:14 04/08/17 11:30 Dilaudid IVPUSH 04/08/17 11:15 0.5 mg ONETIME ONE Administration Ondansetron HCl 4 mg 04/08/17 11:13 04/08/17 11:30 Zofran IVPUSH 04/08/17 11:14 4 mg ONETIME ONE Administration - Re-Assessments/Exams Free Text/Narrative Re-Assessment/Exam: 04/08/17 11:54 iv was started. She was given iv dilaudid and zoforan. Dr Piña was consulted. She will be admitted observation for over nite and then admitted to Hospice tomorrow. Departure - Departure Time of Disposition: 11:55 Disposition: Admitted As Inpatient 67 Condition: Fair Clinical Impression: Dehydration, Metastasis, Inadequate pain control - Discharge Information Referrals: Marissa Phan PA [Primary Care Provider] - Forms: ED Department Discharge Care Plan Goals: admit to Dr piña - My Orders Last 24 Hours: My Active Orders 04/08/17 11:13 UA W/MICROSCOPIC [URIN] Urgent 04/08/17 11:30 Sodium Chloride 0.9% [Normal Saline] 1,000 ml IV ASDIRECTED - Assessment/Plan Last 24 Hours: My Active Orders 04/08/17 11:13 UA W/MICROSCOPIC [URIN] Urgent 04/08/17 11:30 Sodium Chloride 0.9% [Normal Saline] 1,000 ml IV ASDIRECTED
--- NOTE | 2017-04-08 12:41 | PCM.HP ---
H&P History of Present Illness - General Date of Service: 04/08/17 Admit Problem/Dx: Admission Diagnosis/Problem Admission Diagnosis/Problem Dehydration Source of Information: Patient, Family, Old Records, Provider, RN Notes Reviewed History Limitations: Reports: No Limitations - History of Present Illness Initial Comments - Free Text/Narative: Ms. Watts is a 66-year-old woman admitted through the emergency department to observation status for further management of dehydration, nausea and vomiting , secondary to end-stage metastatic lung cancer. She was hospitalized at this facility on observation status earlier this week secondary to similar symptoms and findings. Up to that time had been taking oral chemotherapeutic agent, but had developed progressive symptoms of pain weakness nausea and vomiting. She improved significantly after hydration and management of symptoms. Discussion was held at that time concerning ongoing chemotherapy as well as her wish for ongoing management. She decided to discontinue the oral chemotherapeutic agent and wanted to see if she improved at all off the medication. Options were discussed concerning ongoing management including hospice admission which she refused at that time. Since discharge to home she has developed recurrent nausea vomiting with dehydration and feels as though her pain is not well controlled. At this time she would like to proceed with comfort cares only and hospice admission after discharge. - Related Data Allergies/Adverse Reactions: Allergies Allergy/AdvReac Type Severity Reaction Status Date / Time adhesive tape Allergy Redness Verified 04/08/17 11:00 clarithromycin [From Biaxin] Allergy Hives Verified 04/08/17 11:00 glycerin [From Tucks] Allergy Hives Verified 04/08/17 11:00 metronidazole Allergy Hives Verified 04/08/17 11:00 mineral oil [From Tucks] Allergy Hives Verified 04/08/17 11:00 moxifloxacin HCl Allergy Cannot Verified 04/08/17 11:00 [From Avelox] Remember pramoxine HCl [From Tucks] Allergy Hives Verified 04/08/17 11:00 starch [From Tucks] Allergy Hives Verified 04/08/17 11:00 tetracycline [Tetracycline] Allergy Hives Verified 04/08/17 11:00 witch parris [From Tucks] Allergy Hives Verified 04/08/17 11:00 witch parris leaf [From Tucks] Allergy Hives Verified 04/08/17 11:00 zinc oxide [From Tucks] Allergy Hives Verified 04/08/17 11:00 Iodinated Contrast- Oral and AdvReac Stomach Verified 04/08/17 11:00 IV Dye Upset meperidine HCl [From Demerol] AdvReac Nausea and Verified 04/08/17 11:00 Vomiting Home Medications: Home Meds Omeprazole [Prilosec] 20 mg PO BEDTIME 09/26/13 [History] Dexamethasone 4 mg PO BIDMEALS #30 tablet 12/11/16 [Rx] LORazepam [Ativan] 0.5 mg PO Q2H PRN #30 tablet 12/11/16 [Rx] traMADol [Ultram] 50 mg PO Q6H PRN 04/03/17 [History] Past Medical History HEENT History: Reports: Impaired Vision Respiratory History: Reports: None Gastrointestinal History: Reports: GERD Genitourinary History: Reports: None 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: , 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 Musculoskeletal History: Reports: Neck Pain, Chronic Hematologic History: Reports: Blood Transfusion(s) Immunologic History: Reports: Immunosuppression Oncologic (Cancer) History: Reports: Brain, Lung Other Oncologic History: Lung up trachea and spot on the spine - Infectious Disease History Infectious Disease History: Reports: Chicken Pox - Past Surgical History Other HEENT Surgeries/Procedures: METS TO THE BRAIN Respiratory Surgical History: Reports: Lung Biopsies Other Respiratory Surgeries/Procedures: LUNG CA GI Surgical History: Reports: Other (See Below) Other GI Surgeries/Procedures: endosinche of stomache. Female Surgical History: Reports: Hysterectomy, Other (See Below) Other Female Surgeries/Procedures: bladder repair Other Musculoskeletal Surgeries/Procedures:: METS TO SPINE Oncologic Surgical History: Reports: None Social & Family History - Family History Family Medical History: Noncontributory Oncologic: Reports: Other (See Below) - Tobacco Use Smoking Status *Q: Never Smoker Years of Tobacco use: 20 Packs/Tins Daily: 0.5 Used Tobacco, but Quit: Yes Month Tobacco Last Used: september Second Hand Smoke Exposure: No - Caffeine Use Caffeine Use: Reports: Coffee, Tea - Alcohol Use Days Per Week of Alcohol Use: 0 - Recreational Drug Use Recreational Drug Use: No H&P Review of Systems - Review of Systems: Review Of Systems: Unable To Obtain General: Reports: ROS unobtainable (Secondary to weakness lethargy and sedation) Exam - Exam Exam: See Below - Vital Signs Vital Signs: Last Vital Signs Temp 96.6 F 04/08/17 11:29 Pulse 71 04/08/17 11:29 Resp 16 04/08/17 11:29 BP 93/42 L 04/08/17 11:29 Pulse Ox 94 L 04/08/17 11:29 Weight: 97 lb - Exam General: Sedated, Lethargic HEENT: Conjunctiva Clear, Hearing Intact, Normal Nasal Septum, Posterior Pharynx Clear, Pupils Equal. No: Mucosa Moist & [place] Neck: Supple, Trachea Midline, +2 Carotid Pulse wo Bruit Lungs: Clear to Auscultation, Normal Respiratory Effort Cardiovascular: Regular Rate, Regular Rhythm, Normal S1, Normal S2. No: Systolic Murmur, Diastolic Murmur GI/Abdominal Exam: Soft, Non-Tender, No Organomegaly, No Distention Extremities: Non-Tender, No Pedal Edema Neurological: Cranial Nerves Intact, Strength Equal Bilateral, Normal Speech, Sensation Intact. No: Focal Deficit Neuro Extensive - Mental Status: Normal Mood/Affect, Normal Cognition, Memory Intact - Patient Data Lab Results Last 24 hrs: Laboratory Results - last 24 hr 04/08/17 04/08/17 Range/Units 11:13 11:22 WBC 10.2 (4.5-11.0) K/uL RBC 4.01 (3.30-5.50) M/uL Hgb 12.3 (12.0-15.0) g/dL Hct 37.2 (36.0-48.0) % MCV 93 (80-98) fL MCH 31 (27-31) pg MCHC 33 (32-36) % Plt Count 159 (150-400) K/uL Neut % (Auto) 84 H (36-66) % Lymph % (Auto) 7 L (24-44) % [place] % (Auto) 9 H (2-6) % Eos % (Auto) 0 L (2-4) % Baso % (Auto) 0 (0-1) % Sodium 135 L (140-148) mmol/L Potassium 3.5 L (3.6-5.2) mmol/L Chloride 99 L (100-108) mmol/L Carbon Dioxide 23 (21-32) mmol/L Anion Gap 16.5 H (5.0-14.0) mmol/L BUN 18 (7-18) mg/dL Creatinine 0.8 (0.6-1.0) mg/dL Est Cr Clr Drug Dosing 48.70 mL/min Estimated GFR (MDRD) > 60 (>60) Glucose 140 H (74-106) mg/dL Calcium 8.7 (8.5-10.1) mg/dL Total Bilirubin 0.9 (0.2-1.0) mg/dL AST 16 (15-37) U/L ALT 25 (12-78) U/L Alkaline Phosphatase 46 (46-116) U/L Total Protein 6.1 L (6.4-8.2) g/dL Albumin 3.2 L (3.4-5.0) g/dL Globulin 2.9 (2.3-3.5) g/dL Albumin/Globulin Ratio 1.1 L (1.2-2.2) Result Diagrams: 04/08/17 11:13 04/08/17 11:22 *Q Meaningful Use (ADM) - VTE *Q VTE Criteria *Q: VTE Mechanical Contraindications *Q: At Risk for Falls VTE Pharmacological Contraindications *Q: Not Candidate LT Anticoag - VTE Risk Assess *Q Each Risk Factor Represents 1 Point: None Total Score 1 Point Risk Factors: 0 Each Risk Factor Represents 2 Points: Age 60 - 74 Years, Malignancy (present or previous) Total Score 2 Point Risk Factors: 4 Each Risk Factor Represents 3 Points: None Total Score 3 Point Risk Factors: 0 Each Risk Factor Represents 5 Points: None Total Score 5 Point Risk Factors: 0 Venous Thromboembolism Risk Factor Score *Q: 4 - Stroke *Q Stroke Criteria *Q: - AMI *Q AMI Criteria *Q: Problem List Initiated/Reviewed/Updated: Yes Orders Last 24hrs: Active Orders 24 hr Category Date Time Status Patient Status Manage Transfer [TRANSFER] Routine ADT 04/08/17 12:01 Active UA W/MICROSCOPIC [URIN] Urgent Lab 04/08/17 11:13 Uncollected Sodium Chloride 0.9% [Normal Saline] 1,000 ml Med 04/08/17 11:30 Active IV ASDIRECTED Resuscitation Status Routine Resus Stat 04/08/17 12:03 Ordered Medication Orders Sodium Chloride (Normal Saline) 1,000 mls @ 300 mls/hr IV ASDIRECTED CASSIE Last Admin: 04/08/17 11:30 Dose: 300 mls/hr Assessment/Plan Comment:: ASSESSMENT AND PLAN DEHYDRATION-secondary to nausea vomiting with underlying end-stage lung cancer -IV fluids for hydration -Antiemetic therapy as needed using Zofran and/or lorazepam END-STAGE METASTATIC LUNG CANCER-progressive and worsening symptoms despite current oral chemotherapy. -Sublingual morphine as needed for pain PALLIATIVE CARE-she would like fluids for hydration at this time but does not otherwise want aggressive interventions -Hospice admission on discharge MAINTENANCE ISSUES -DVT prophylaxis; not indicated -GI prophylaxis; continue proton pump inhibitor therapy -Gilliam catheter; not indicated -Nutrition; regular diet -Nicotinic dependence; not required CODE STATUS-DNR/DNI, COMFORT CARES ADMISSION STATUS-this patient will be admitted to observation status, expect no more than a one night hospital stay for evaluation and management of problems as outlined above. DISPOSITION-anticipate discharge to home after the hospital stay. PRIMARY CARE PROVIDER-Marissa Phan
[2017-04-08] MEDS ORDERED: LORazepam ORAL Concentrate 1MG/0.5ML U/D PO PRN (14:02)
[2017-04-08] MEDS ORDERED: Sodium Chloride 0.9% 500 ML IV SCH (14:02)
[2017-04-08] MEDS ORDERED: Sodium Chloride 0.9% 10 ML Syringe FLUSH PRN (14:02)
[2017-04-08] MEDS ORDERED: Acetaminophen 325 MG Tab PO PRN (14:02)
[2017-04-08] MEDS: Morphine 10 MG/0.5 ML Oral Syringe SL PRN ×4 (14:30→22:45)
[2017-04-08] MEDS: Scopolamine 1.5 MG Transdermal Patch TRDERM SCH ×2 (14:37→15:55)
[2017-04-08] MEDS: Dexamethasone 4 MG/ML SDV IVPUSH SCH (15:55)
[2017-04-08] MEDS ORDERED: Pantoprazole 40 MG Vial IVPUSH SCH (16:00)
[2017-04-08] MEDS: Ondansetron 4 MG/2 ML SDV IVPUSH PRN ×2 (16:12→21:18)
[2017-04-08] MEDS: Sodium Chloride 0.9% 1,000 ML IV SCH (20:46)
[2017-04-08] MEDS: Hypromellose 0.4% Ophth Soln 15 ML Bottle EYEBOTH PRN (22:48)
[2017-04-09] MEDS: Morphine 10 MG/0.5 ML Oral Syringe SL PRN ×4 (02:23→14:55)
[2017-04-09] MEDS: Hypromellose 0.4% Ophth Soln 15 ML Bottle EYEBOTH PRN (02:24)
[2017-04-09] MEDS: Ondansetron 4 MG/2 ML SDV IVPUSH PRN (03:22)
[2017-04-09] MEDS: Dexamethasone 4 MG/ML SDV IVPUSH SCH (03:23)
[2017-04-09] MEDS: Sodium Chloride 0.9% 1,000 ML IV SCH (04:44)
[2017-04-09 07:44] VITALS: BP 134/79
[2017-04-09] MEDS ORDERED: VERIFY SCOPOLAMINE PATCH TOP SCH (09:00)
--- NOTE | 2017-04-09 10:38 | PCM.DCSUM1 ---
Discharge Summary - Hospital Course Brief History: 66-year-old female with stage IV lung cancer that has been progressing despite outpatient chemotherapy who presented with recurrent nausea vomiting and dehydration. She was admitted for additional hydration and hospice consultation. - Discharge Data Discharge Date: 04/09/17 Discharge Disposition: DC/Tfer to Hospice - Home 51 Condition: Poor - Discharge Diagnosis/Problem(s) (1) Dehydration SNOMED Code(s): 44147370 ICD Code: E86.0 - DEHYDRATION Status: Acute Current Visit: Yes (2) Weakness SNOMED Code(s): 15307712 ICD Code: R53.1 - WEAKNESS Status: Acute Current Visit: No (3) Stage 4 lung cancer SNOMED Code(s): 13738812 ICD Code: C34.90 - MALIGNANT NEOPLASM OF UNSP PART OF UNSP BRONCHUS OR LUNG Status: Chronic Priority: Medium Current Visit: No Qualifiers: Laterality: right Qualified Code(s): C34.91 - Malignant neoplasm of unspecified part of right bronchus or lung (4) Palliative care encounter SNOMED Code(s): 101234618 ICD Code: Z51.5 - ENCOUNTER FOR PALLIATIVE CARE Status: Chronic Current Visit: No - Patient Summary/Data Consults: Consultations 04/08/17 14:02 Consult to Hospice [CONS] Routine Comment: Physician Instructions: Reason for Consult: End-stage lung cancer Hospital Course: Eliza presented to the emergency room with recurrent nausea vomiting and dehydration. She had been recently hospitalized for similar symptoms but had improved with hydration. She was not thought to be safe for outpatient management given the severity of her symptoms and the level of dehydration. She was admitted to the hospital and IV fluids were initiated. Symptomatic management for the nausea and vomiting was provided as well. Discussions were held about ongoing management after hospital discharge. Patient and her family were on board with transitioning to a comfort-based approach. There is concerned that her cancer has progressed despite her oral chemotherapy. She has lost significant weight and is very weak and debilitated at this time. She would like to forego further aggressive interventions which may cause additional pain or discomfort. She would like to focus on comfort and trying to maintain as much quality of life during her final days as possible. She was seen in consultation by hospice while she was an inpatient. The plan is for her to be discharged to home with her family as well as hospice care. It is very reasonable to believe that if her disease condition runs its current course that her life expectancy will be less than 6 months and is likely limited to a matter of weeks at this time. On the morning of discharge we did obtain a urine sample which was suggestive of infection. She will be sent home with 3 days of antibiotic therapy. We have transitioned as many medications as possible to liquid form to make them easier to take. - Patient Instructions Diet: Usual Diet as Tolerated Activity: As Tolerated Driving: Do Not Drive Showering/Bathing: May Shower Notify Provider of: Fever, Increased Pain, Nausea and/or Vomiting Other/Special Instructions: 1. You were in the hospital for management of nausea with vomiting and dehydration secondary to advanced lung cancer. The decision has been made to transition to hospice care at the time of discharge from the hospital. They will be providing the equipment, nursing care and additional services to help ease the transition home from the hospital and focus on comfort and quality of life after discharge to home. 2. I would recommend that you continue taking dexamethasone 4 mg once daily to help relieve some of the brain swelling because of the metastatic cancer. I have provided a prescription for a solution rather than a tablet to make taking the medication easier. 3. The urine sample collected on the morning of discharge did suggest infection. I recommend taking cephalexin 500 mg twice daily for 6 doses. This medication does help maintain a liquid form. - Discharge Plan Prescriptions/Med Rec: Cephalexin [Keflex 250 MG/5 ML Susp] 500 mg PO BID #60 ml Dexamethasone [Dexamethasone Intensol] 4 mg PO DAILY #1 bottle LORazepam [Ativan ORAL Concentrate 1MG/0.5 ML U/D] 0.5 mg PO Q1H PRN #60 ml PRN Reason: Anxiety Morphine [Morphine 10 MG/0.5 ML Oral Syringe] 5 - 10 mg SL Q1H PRN #90 syringe PRN Reason: Pain Scopolamine [Transderm-Scop] 1.5 mg TRDERM Q72H #10 patch Home Medications: Home Meds Cephalexin [Keflex 250 MG/5 ML Susp] 500 mg PO BID #60 ml 04/09/17 [Rx] Dexamethasone [Dexamethasone Intensol] 4 mg PO DAILY #1 bottle 04/09/17 [Rx] LORazepam [Ativan ORAL Concentrate 1MG/0.5 ML U/D] 0.5 mg PO Q1H PRN #60 ml [Rx] Morphine [Morphine 10 MG/0.5 ML Oral Syringe] 5 - 10 mg SL Q1H PRN #90 syringe 04/09/17 [Rx] Scopolamine [Transderm-Scop] 1.5 mg TRDERM Q72H #10 patch 04/09/17 [Rx] Patient Handouts: Cephalexin oral suspension, Hospice Referrals: Marissa Phan PA [Primary Care Provider] - - Discharge Summary/Plan Comment DC Time >30 min.: Yes (45 - new hospice discharge ) - Patient Data Vitals - Most Recent: Last Vital Signs Temp 36.9 C 04/09/17 07:00 Pulse 76 04/09/17 07:00 Resp 16 04/09/17 07:00 BP 134/79 04/09/17 07:00 Pulse Ox 96 04/09/17 07:00 Weight - Most Recent: 46.493 kg I&O - Last 24 hours: Intake & Output 04/08/17 04/09/17 04/09/17 22:59 06:59 14:59 Intake Total 1228 2752 Output Total 230 250 300 Balance 998 2502 -300 Lab Results - Last 24 hrs: Laboratory Results - last 24 hr 04/09/17 Range/Units 08:20 Urine Color Yellow Urine Appearance Cloudy Urine pH 6.0 (4.5-8.0) Ur Specific [place] 1.015 (1.008-1.030) Urine Protein Negative (NEGATIVE) mg/dL Urine Glucose (UA) Normal (NEGATIVE) mg/dL Urine Ketones 15 H (NEGATIVE) mg/dL Urine Occult Blood Negative (NEGATIVE) Urine Nitrite Negative (NEGATIVE) Urine Bilirubin Negative (NEGATIVE) Urine Urobilinogen Normal (NORMAL) mg/dL Ur Leukocyte Esterase Large (NEGATIVE) Urine RBC 0-5 (0-5) Urine WBC 40-50 H (0-5) Ur Epithelial Cells Few Amorphous Sediment Not seen Urine Bacteria Many Urine Mucus Not seen Med Orders - Current: Current Medications Acetaminophen (Tylenol) 650 mg PO Q4H PRN PRN Reason: Pain (Mild 1-3)/fever Artificial Tears (Natural Balance Tears) 0 ml EYEBOTH Q1H PRN PRN Reason: Other Last Admin: 04/09/17 02:24 Dose: 1 drop Dexamethasone (Dexamethasone) 4 mg IVPUSH Q12H CASSIE Last Admin: 04/09/17 03:23 Dose: 4 mg Sodium Chloride (Normal Saline) 1,000 mls @ 125 mls/hr IV ASDIRECTED [facility] Last Admin: 04/09/17 04:44 Dose: 125 mls/hr Lorazepam (Ativan Oral Concentrate 1mg/0.5 Ml U/D) 0.5 mg PO Q2H PRN PRN Reason: Nausea Last Admin: 04/08/17 22:44 Dose: 0.5 mg Morphine Sulfate (Morphine 10 Mg/0.5 Ml Oral Syringe) 5 - 10 mg SL Q1H PRN PRN Reason: Pain Last Admin: 04/09/17 06:04 Dose: 10 mg Verify Scopolamine (Patch) 0 each TOP DAILY [facility] Ondansetron HCl (Zofran) 4 mg IVPUSH Q4H PRN PRN Reason: Nausea/Vomiting Last Admin: 04/09/17 03:22 Dose: 4 mg Pantoprazole Sodium (Protonix Iv) 40 mg IVPUSH Q24H [facility] Last Admin: 04/08/17 15:55 Dose: 40 mg Scopolamine (Transderm-Scop) 1.5 mg TRDERM Q72H [facility] Last Admin: 04/08/17 15:55 Dose: Not Given Sodium Chloride (Saline Flush) 10 ml FLUSH ASDIRECTED PRN PRN Reason: Keep Vein Open Discontinued Medications Hydromorphone HCl (Dilaudid) 0.5 mg IVPUSH ONETIME ONE Stop: 04/08/17 11:15 Last Admin: 04/08/17 11:30 Dose: 0.5 mg Sodium Chloride (Normal Saline) 1,000 mls @ 300 mls/hr IV ASDIRECTED [facility] Last Admin: 04/08/17 11:30 Dose: 300 mls/hr Sodium Chloride (Normal Saline) 500 mls @ 250 mls/hr IV .BOLUS [facility] Stop: 04/08/17 20:03 Last Admin: 04/08/17 14:34 Dose: 250 mls/hr Sodium Chloride (Normal Saline) 1,000 mls @ 250 mls/hr IV ASDIRECTED [facility] Stop: 04/08/17 21:16 Ondansetron HCl (Zofran) 4 mg IVPUSH ONETIME ONE Stop: 04/08/17 11:14 Last Admin: 04/08/17 11:30 Dose: 4 mg - Exam Quality Assessment: Denies: Supplemental Oxygen General: Reports: Alert, Cooperative, No Acute Distress, Sedated Lungs: Reports: Normal Respiratory Effort GI/Abdominal Exam: No Distention *Q Meaningful Use (DIS) - VTE *Q VTE Criteria *Q: VTE Mechanical Contraindications *Q: At Risk for Falls VTE Pharmacological Contraindications *Q: Not Candidate LT Anticoag - Stroke *Q Stroke Criteria *Q: - AMI *Q AMI Criteria *Q:
== END 2017-04-09 15:12 | disposition hospice, home (50) ==
LOC: JP.ED 10:53 → JP.MS 12:01
PROVIDERS: ADMIT Hospitalist; ATTEND Internal Medicine
DX: E86.0 Dehydration (principal); R53.1 Weakness; C34.91 Malignant neoplasm of unspecified part of right bronchus or lung; K21.9 Gastro-esophageal reflux disease without esophagitis; Z51.5 Encounter for palliative care; Z79.2 Long term (current) use of antibiotics; Z79.899 Other long term (current) drug therapy; Z91.09 Other allergy status, other than to drugs and biological substances; Z91.041 Radiographic dye allergy status
CPT/HCPCS: 36415; 80053; 81001; 85025; 96374; 96375; 99285; A9270; C9113; J1100; J1170; J2405; J7040; 96361; 96376; 99217; 99219; G0378